=== PATIENT | female | born 1960 | race African-American/Black ===

== ENCOUNTER 2018-10-13 20:12 | Emergency (ER) | payer MEDICARE, OTHER ==
[~2018-10-13] VITALS: Ht 152.4 cm; Wt 76.7 kg
[~2018-10-13 20:12] MED LIST: ARIP30TA4; LAMO300T; LIDO700A4 TD; OXYC15TA61; OXYC1TAB22 PO; OXYC20TA PO; OXYC5TAB88 PO
[2018-10-13] MEDS ORDERED: predniSONE 20 MG TABLET PO ONE (20:30)
[2018-10-13] MEDS ORDERED: FAMOTIDINE 20 MG TABLET. PO ONE (20:30)
[2018-10-13] MEDS ORDERED: diphenhydrAMINE HCL 25 MG CAPSULE PO ONE (20:30)
[2018-10-13 21:22] VITALS: BP 130/81
[2018-10-13] MEDS ORDERED: RANI300T3 PO (21:34)
[2018-10-13] MEDS ORDERED: VALA10005 PO (21:34)
[2018-10-13] MEDS ORDERED: PRED20TA PO (21:34)
--- NOTE | 2018-10-13 21:34 | PHYS DOC ---
Past Medical History Past Medical History: Asthma, Pneumonia Additional Past Medical Histor: Graves dx, chronic pain knees and hips Past Surgical History: Hysterectomy, Knee Replacement Additional Past Surgical Histo: CARPAL TUNNEL Alcohol Use: None Drug Use: None Adult General Chief Complaint Chief Complaint: FACE PROBLEM HPI HPI 58-year-old female presents with some right-sided facial swelling. She's noted her upper lip and right side of her face is been burning. She denies any swelling or burning in her ear. She states this is happened in the past. She denies any tongue swelling or difficulty swallowing. She hasn't had any difficulty opening or closing her mouth. She's had no trouble with her speech. She does state that the area moses.[] Review of Systems Review of Systems Constitutional: Denies fever or chills [] Eyes: Denies change in visual acuity, redness, or eye pain [] HENT: Upper lip swelling[] Respiratory: Denies cough or shortness of breath [] Cardiovascular: No additional information not addressed in HPI [] GI: Denies abdominal pain, nausea, vomiting, bloody stools or diarrhea [] : Denies dysuria or hematuria [] Musculoskeletal: Denies back pain or joint pain [] Integument: Denies rash or skin lesions [] Neurologic: Denies headache, focal weakness or sensory changes [] Endocrine: Denies polyuria or polydipsia [] All other systems were reviewed and found to be within normal limits, except as documented in this note. Current Medications Current Medications Current Medications Medications (Trade) Dose Ordered Sig/Alley Start Time Stop Time Status Last Admin Dose Admin Diphenhydramine HCl (Benadryl) 25 mg 1X ONCE 10/13/18 20:30 10/13/18 20:33 DC 10/13/18 20:48 25 MG Famotidine (Pepcid) 40 mg 1X ONCE 10/13/18 20:30 10/13/18 20:33 DC 10/13/18 20:47 40 MG Prednisone (Prednisone) 60 mg 1X ONCE 10/13/18 20:30 10/13/18 20:33 DC 10/13/18 20:48 60 MG Allergies Allergies Allergies Coded Allergies Type Severity Reaction Last Updated Verified Sulfa (Sulfonamide Antibiotics) Allergy Intermediate 05/13/15 Yes iodine Allergy Intermediate 05/13/15 Yes sulfamethoxazole Allergy Intermediate 05/13/15 Yes trimethoprim Allergy Intermediate 05/13/15 Yes Physical Exam Physical Exam Constitutional: Well developed, well nourished, no acute distress, non-toxic appearance. [] HENT: Some upper lip swelling predominantly on the right no lower lip swelling no tongue swelling no posterior pharyngeal swelling there is no rash in the ear. [] Eyes: PERRLA, EOMI, conjunctiva normal, no discharge. [] Neck: Normal range of motion, no tenderness, supple, no stridor. [] Cardiovascular:Heart rate regular rhythm, no murmur [] Lungs & Thorax: Bilateral breath sounds clear to auscultation [] Abdomen: Bowel sounds normal, soft, no tenderness, no masses, no pulsatile masses. [] Skin: Warm, dry, no erythema, no rash. [] Back: No tenderness, no CVA tenderness. [] Extremities: No tenderness, no cyanosis, no clubbing, ROM intact, no edema. [] Neurologic: Alert and oriented X 3, normal motor function, normal sensory function, no focal deficits noted. [] Psychologic: Affect normal, judgement normal, mood normal. [] Current Patient Data Vital Signs Vital Signs Date Time Temp Pulse Resp B/P (MAP) Pulse Ox O2 Delivery O2 Flow Rate FiO2 10/13/18 20:15 98.0 88 18 118/72 (87) 96 Room Air 98.0 EKG EKG [] Radiology/Procedures Radiology/Procedures [] Course & Med Decision Making Course & Med Decision Making Pertinent Labs and Imaging studies reviewed. (See chart for details) [ED course: Evaluation reveals a 58-year-old female with some right sided facial burning and swelling. I gave her Benadryl, prednisone and Pepcid and that did alleviate some of her symptoms. There was no tongue or posterior pharyngeal swelling. I'm concerned that she may have a component of zoster so I will therefore treat her with some Valtrex as well.] Dragon Disclaimer Dragon Disclaimer This electronic medical record was generated, in whole or in part, using a voice recognition dictation system. Departure Departure Impression: Primary Impression: Right facial swelling Disposition: HOME, SELF-CARE Condition: IMPROVED Referrals: CECE CHAPMAN MD (PCP) Patient Instructions: Angioedema Additional Instructions: Return to the emergency department with any new or concerning symptoms Scripts Ranitidine Hcl (ZANTAC) 300 Mg Tablet 1 TAB PO QHS for reflux, #30 TAB 3 Refills Prov: PAULA MERAZ DO 10/13/18 Valacyclovir Hcl (VALTREX) 1,000 Mg Tablet 1 TAB PO DAILY, #30 TAB 0 Refills Prov: PAULA MERAZ DO 10/13/18 Prednisone (PREDNISONE) 20 Mg Tablet 3 TAB PO DAILY PRN for COUGH for 5 Days, #15 TAB Prov: PAULA MERAZ DO 10/13/18 PAULA MERAZ DO Oct 13, 2018 21:34
[2018-10-14] MEDS ORDERED: CLIN300C8 PO (23:07)
== END 2018-10-13 21:40 | disposition home or self-care (01) ==
LOC: ER 20:12
DX: R22.0 Localized swelling, mass and lump, head (principal); J45.909 Unspecified asthma, uncomplicated; G89.29 Other chronic pain; Z90.710 Acquired absence of both cervix and uterus; Z96.659 Presence of unspecified artificial knee joint; Z88.2 Allergy status to sulfonamides; Z88.1 Allergy status to other antibiotic agents; Z91.041 Radiographic dye allergy status
CPT/HCPCS: 99284; J7512; Q0163

== ENCOUNTER 2018-10-14 20:29 | Emergency (ER) | payer MEDICARE, OTHER ==
[~2018-10-14] VITALS: Ht 152.4 cm; Wt 76.7 kg
[~2018-10-14 20:29] MED LIST changes: +PRED20TA PO; +RANI300T3 PO; +VALA10005 PO
[2018-10-14 20:58] VITALS: BP 115/86
--- NOTE | 2018-10-14 22:13 | PHYS DOC ---
Past Medical History Past Medical History: Asthma, Pneumonia Additional Past Medical Histor: Graves dx, chronic pain knees and hips Past Surgical History: Hysterectomy, Knee Replacement Additional Past Surgical Histo: CARPAL TUNNEL Alcohol Use: None Drug Use: None Adult General Chief Complaint Chief Complaint: FACE PROBLEM [facility] HPI Patient is a 58 year old female presents to the ED complaining of right facial swelling 2 days ago. States similar symptoms have happened in the past. States that she thinks it is an allergic reaction but is unsure of the cause. Patient does not take any NATHAN inhibitor's. Patient was seen in the ED yesterday and given Valtrex, prednisone and Benadryl. Patient noted that swelling to right face has improved. Patient refuses to take valtrex as she does not have herpes. Discussed multiple different treatments for valtrex. Patient also unhappy that she did not have any imaging of her face done. Patient thinks that the swelling is due to a possible infection. Denies dental pain, fever, difficulty swallowing , tongue swelling, lip swelling, chest pain, shortness of breath, nausea/ vomiting, paresthesias, facial droop, headache or dizziness. Review of Systems Review of Systems Constitutional: Denies fever or chills [] Eyes: Denies change in visual acuity, redness, or eye pain [] HENT: Complains of right-sided facial swelling. Denies nasal congestion or sore throat [] Respiratory: Denies cough or shortness of breath [] Cardiovascular: No additional information not addressed in HPI [] GI: Denies abdominal pain, nausea, vomiting, bloody stools or diarrhea [] : Denies dysuria or hematuria [] Musculoskeletal: Denies back pain or joint pain [] Integument: Denies rash or skin lesions [] Neurologic: Denies headache, focal weakness or sensory changes [] All other systems were reviewed and found to be within normal limits, except as documented in this note. Allergies Allergies Allergies Coded Allergies Type Severity Reaction Last Updated Verified Sulfa (Sulfonamide Antibiotics) Allergy Intermediate 05/13/15 Yes iodine Allergy Intermediate 05/13/15 Yes sulfamethoxazole Allergy Intermediate 05/13/15 Yes trimethoprim Allergy Intermediate 05/13/15 Yes Physical Exam Physical Exam Constitutional: Well developed, well nourished, no acute distress, non-toxic appearance. [] HENT: Normocephalic, atraumatic, bilateral external ears normal, oropharynx moist, no oral exudates, nose normal. Mild right sided lower jaw swelling. No erythema, trismus warmth or fluctuance. FROM.[] Eyes: PERRLA, EOMI, conjunctiva normal, no discharge. [] Neck: Normal range of motion, no tenderness, supple, no stridor. [] Cardiovascular:Heart rate regular rhythm, no murmur [] Lungs & Thorax: Bilateral breath sounds clear to auscultation [] Skin: Warm, dry, no erythema, no rash. [] Neurologic: Alert and oriented X 3, normal motor function, normal sensory function, no focal deficits noted. [] Psychologic: Affect normal, judgement normal, mood normal. [] Current Patient Data Vital Signs Vital Signs Date Time Temp Pulse Resp B/P (MAP) Pulse Ox O2 Delivery O2 Flow Rate FiO2 10/14/18 20:58 98.3 99 18 115/86 (96) 97 Room Air 98.3 EKG EKG [] Radiology/Procedures Radiology/Procedures []PROCEDURE: CT MAXILLOFACIAL WO CONTRAST INDICATION: right swelling to jaw COMPARISON: None. TECHNIQUE: Axial CT images obtained through the face. One or more of the following individualized dose reduction techniques were utilized for this examination: 1. Automated exposure control; 2. Adjustment of the mA and/or kV according to patient size; 3. Use of iterative reconstruction technique. FINDINGS: Apparent thinning of the inferior orbital wall bilaterally with bowing of the wall. There is also some apparent thinning of the skull base on the right at temporal region. Defect lateral orbital wall bilaterally. Hardware seen on the left within the osseous structures adjacent to the globe. There is edema seen to the right side of the face adjacent to the maxilla and mandible with enlarged lymph nodes within the region as well. Cannot assess for a drainable fluid collection on noncontrast imaging. IMPRESSION: 1. Large amount of swelling to soft tissues at the right side of the face. Correlate with symptoms in the region since infectious causes can have this appearance. There is a confluent region of low-attenuation measuring approximately a centimeter adjacent to the right side of the mandible. Although this could be artifactual in nature phlegmon or abscess formation are within the differential and limited evaluation without contrast. 2. There is thinning of the calvarium at the right skull base at the right temporal region. Would correlate with history of surgery to the region. If no history of surgery to this area some possible causes would include arachnoid granulation although a lytic lesions in the area is also within the differential. If further clarification is desired MRI could BE obtained with and without contrast. 3. There is also thinning of the inferior orbital wall with bowing within the region. Defects are seen at the lateral orbital wall as well. Course & Med Decision Making Course & Med Decision Making Pertinent Labs and Imaging studies reviewed. (See chart for details) []Discussed imaging findings with patient. Patient has a history of surgeries to her skull due to her Graves' disease. Unknown if findings on imaging are from the possible arachnoid granulations/lytic lesions seen on CT or her previous surgeries. Patient has soft tissue swelling. No discrete signs of infection on exam or on CT. Patient has had similar symptoms in the past of facial swelling that has improved with prednisone. Patient notes swelling has improved since yesterday with the prednisone and Benadryl. Patient requesting antibiotic treatment. Will treat with clindamycin outpatient. Discussed follow- up with PCP for MRI outpatient. Provided contact information/education. Discussed reasons to return to the ED. Patient understands and agrees with plan. Discussed case with attending physician whom agrees with evaluation and plan. Dragon Disclaimer Dragon Disclaimer This electronic medical record was generated, in whole or in part, using a voice recognition dictation system. Departure Departure Impression: Primary Impression: Facial swelling Disposition: 01 HOME, SELF-CARE Condition: IMPROVED Referrals: CECE CHAPMAN MD (PCP) Patient Instructions: Angioedema Scripts Clindamycin Hcl (CLINDAMYCIN HCL) 300 Mg Capsule 1 CAP PO TID for 7 Days, #21 CAP Prov: MARGARITA SILVESTRE 10/14/18 MARGARITA SILVESTRE Oct 14, 2018 22:13
--- NOTE | 2018-10-14 22:55 | RAD ---
INDICATION: right swelling to jaw COMPARISON: None. TECHNIQUE: Axial CT images obtained through the face. One or more of the following individualized dose reduction techniques were utilized for this examination: 1. Automated exposure control; 2. Adjustment of the mA and/or kV according to patient size; 3. Use of iterative reconstruction technique. FINDINGS: Apparent thinning of the inferior orbital wall bilaterally with bowing of the wall. There is also some apparent thinning of the skull base on the right at temporal region. Defect lateral orbital wall bilaterally. Hardware seen on the left within the osseous structures adjacent to the globe. There is edema seen to the right side of the face adjacent to the maxilla and mandible with enlarged lymph nodes within the region as well. Cannot assess for a drainable fluid collection on noncontrast imaging. IMPRESSION: 1. Large amount of swelling to soft tissues at the right side of the face. Correlate with symptoms in the region since infectious causes can have this appearance. There is a confluent region of low-attenuation measuring approximately a centimeter adjacent to the right side of the mandible. Although this could be artifactual in nature phlegmon or abscess formation are within the differential and limited evaluation without contrast. 2. There is thinning of the calvarium at the right skull base at the right temporal region. Would correlate with history of surgery to the region. If no history of surgery to this area some possible causes would include arachnoid granulation although a lytic lesions in the area is also within the differential. If further clarification is desired MRI could BE obtained with and without contrast. 3. There is also thinning of the inferior orbital wall with bowing within the region. Defects are seen at the lateral orbital wall as well. Electronically signed by: Milton Umana MD (10/14/2018 10:52 PM) [facility]
[2018-10-14] MEDS ORDERED: CLIN300C8 PO (23:07)
== END 2018-10-14 23:21 | disposition home or self-care (01) ==
LOC: ER 20:29
DX: R22.0 Localized swelling, mass and lump, head (principal); G89.29 Other chronic pain; J45.909 Unspecified asthma, uncomplicated; Z88.1 Allergy status to other antibiotic agents; Z88.2 Allergy status to sulfonamides; Z88.8 Allergy status to other drugs, medicaments and biological substances
CPT/HCPCS: 70486; 99284-25

== ENCOUNTER 2018-11-08 14:02 | Emergency (ER) | payer MEDICARE, OTHER ==
[~2018-11-08] VITALS: Ht 152.4 cm; Wt 79.4 kg
[~2018-11-08 14:02] MED LIST changes: +CLIN300C8 PO
[2018-11-08] MEDS ORDERED: MORPHINE SULFATE 10 MG/ML VIAL. IV ONE (14:30)
[2018-11-08 14:50] LABS: BASO % 1 % (0-3); EOS # 0.2 x10^3/uL (0.0-0.7); EOS % 5 % (0-3); HEMATOCRIT 34.9 % (36.0-47.0); HEMOGLOBIN 11.6 g/dL (12.0-15.5); LYMPH # 0.7 x10^3/uL (1.0-4.8); LYMPH % 14 % (24-48); MEAN CORPUSCULAR HEMOGLOBIN 29 pg (25-35); MEAN CORPUSCULAR HGB CONC 33 g/dL (31-37); MEAN CORPUSCULAR VOLUME 88 fL (79-100); MONO # 0.6 x10^3/uL (0.0-1.1); MONO % 12 % (0-9); NEUT # 3.2 x10^3uL (1.8-7.7); NEUT % 68 % (31-73); PLATELET COUNT 237 x10^3/uL (140-400); RED BLOOD COUNT 3.96 x10^6/uL (3.50-5.40); RED CELL DISTRIBUTION WIDTH 14.6 % (11.5-14.5); WHITE BLOOD COUNT 4.6 x10^3/uL (4.0-11.0)
[2018-11-08 14:55] LABS: CREATININE 0.8 mg/dL (0.6-1.0); GFR 89.1; POTASSIUM 3.5 mmol/L (3.5-5.1)
[2018-11-08 15:01] LABS: ALBUMIN 3.1 g/dL (3.4-5.0); ALBUMIN/GLOBULIN RATIO 0.9 (1.0-1.7); TOTAL BILIRUBIN 0.2 mg/dL (0.2-1.0); TOTAL PROTEIN 6.5 g/dL (6.4-8.2)
--- NOTE | 2018-11-08 15:13 | RAD ---
Pelvis with both hips, 5 views, 11/08/2018: HISTORY: Severe right hip pain There is severe narrowing of the right hip joint with sclerosis and marginal spurring. There is mixed lytic and sclerotic change in the superior aspect of the femoral head with articular irregularity. 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 There is mild to moderate degenerative change at the left hip joint. Moderate spurring is evident in the lower lumbar spine. IMPRESSION: Severe degenerative change at the right hip joint as described above. Electronically signed by: Jose Luis Capps MD (11/08/2018 3:09 PM) [facility]
--- NOTE | 2018-11-08 15:23 | PHYS DOC ---
Past Medical History Past Medical History: Asthma, Pneumonia Additional Past Medical Histor: Graves dx, chronic pain knees and hips Past Surgical History: Hysterectomy, Knee Replacement Additional Past Surgical Histo: CARPAL TUNNEL Alcohol Use: None Drug Use: None Adult General Chief Complaint Chief Complaint: HIP PAIN HPI HPI Patient is a 58 year old female who presents with severe pain in her right hip. She states that the pain is 10/10. She states that she was supposed to have a hip replacement with Dr. Mg about 2.5 years ago, but was afraid and did not follow up. She has good days and bad days with her pain, but states this is the worst that it's been. She denies any new injury. Nothing is relieving the pain. Review of Systems Review of Systems Constitutional: Denies fever or chills [ Respiratory: Denies cough or shortness of breath [] Cardiovascular: No additional information not addressed in HPI [] GI: Denies abdominal pain, nausea, vomiting, bloody stools or diarrhea [] : Denies dysuria or hematuria [] Musculoskeletal: See history of present illness Integument: Denies rash or skin lesions [] Neurologic: Denies headache, focal weakness or sensory changes [] Endocrine: Denies polyuria or polydipsia [] All other systems were reviewed and found to be within normal limits, except as documented in this note. Current Medications Current Medications Current Medications Medications (Trade) Dose Ordered Sig/[facility] Start Time Stop Time Status Last Admin Dose Admin Morphine Sulfate (Morphine Sulfate) 5 mg 1X ONCE 11/08/18 14:30 11/08/18 14:31 DC 11/08/18 14:35 5 MG Allergies Allergies Allergies Coded Allergies Type Severity Reaction Last Updated Verified Sulfa (Sulfonamide Antibiotics) Allergy Intermediate 05/13/15 Yes iodine Allergy Intermediate 05/13/15 Yes sulfamethoxazole Allergy Intermediate 05/13/15 Yes trimethoprim Allergy Intermediate 05/13/15 Yes Physical Exam Physical Exam Constitutional: Well developed, well nourished, no acute distress, non-toxic appearance. [] Cardiovascular:Heart rate regular rhythm, no murmur [] Lungs & Thorax: Bilateral breath sounds clear to auscultation [] Abdomen: Bowel sounds normal, soft, no tenderness, no masses, no pulsatile masses. [] Skin: Warm, dry, no erythema, no rash. [] Back: No tenderness, no CVA tenderness. [] Extremities: tenderness to right hip, no gross deformity or shortening noted, pulses and sensation are intact distal to pain no cyanosis, no clubbing, ROM decreased due to pain Neurologic: Alert and oriented X 3, normal motor function, normal sensory function, no focal deficits noted. [] Psychologic: Affect normal, judgement normal, mood normal. [] Current Patient Data Vital Signs Vital Signs Date Time Temp Pulse Resp B/P (MAP) Pulse Ox O2 Delivery O2 Flow Rate FiO2 11/08/18 14:38 88 24 98/60 (73) 98 Room Air 11/08/18 14:13 97.8 97.8 Lab Values Laboratory Tests Test 11/08/18 14:30 White Blood Count 4.6 x10^3/uL (4.0-11.0) Red Blood Count 3.96 x10^6/uL (3.50-5.40) Hemoglobin 11.6 g/dL (12.0-15.5) L Hematocrit 34.9 % (36.0-47.0) L Mean Corpuscular Volume 88 fL (79-100) Mean Corpuscular Hemoglobin 29 pg (25-35) Mean Corpuscular Hemoglobin Concent 33 g/dL (31-37) Red Cell Distribution Width 14.6 % (11.5-14.5) H Platelet Count 237 x10^3/uL (140-400) Neutrophils (%) (Auto) 68 % (31-73) Lymphocytes (%) (Auto) 14 % (24-48) L Monocytes (%) (Auto) 12 % (0-9) H Eosinophils (%) (Auto) 5 % (0-3) H Basophils (%) (Auto) 1 % (0-3) Neutrophils # (Auto) 3.2 x10^3uL (1.8-7.7) Lymphocytes # (Auto) 0.7 x10^3/uL (1.0-4.8) L Monocytes # (Auto) 0.6 x10^3/uL (0.0-1.1) Eosinophils # (Auto) 0.2 x10^3/uL (0.0-0.7) Basophils # (Auto) 0.0 x10^3/uL (0.0-0.2) Sodium Level 141 mmol/L (136-145) Potassium Level 3.5 mmol/L (3.5-5.1) Chloride Level 106 mmol/L (98-107) Carbon Dioxide Level 29 mmol/L (21-32) Anion Gap 6 (6-14) Blood Urea Nitrogen 13 mg/dL (7-20) Creatinine 0.8 mg/dL (0.6-1.0) Estimated GFR (Cockcroft-Gault) 89.1 BUN/Creatinine Ratio 16 (6-20) Glucose Level 96 mg/dL (70-99) Calcium Level 9.0 mg/dL (8.5-10.1) Total Bilirubin 0.2 mg/dL (0.2-1.0) Aspartate Amino Transferase (AST) 16 U/L (15-37) Alanine Aminotransferase (ALT) 20 U/L (14-59) Alkaline Phosphatase 173 U/L (46-116) H Total Protein 6.5 g/dL (6.4-8.2) Albumin 3.1 g/dL (3.4-5.0) L Albumin/Globulin Ratio 0.9 (1.0-1.7) L Laboratory Tests 11/08/18 14:30 Laboratory Tests 11/08/18 14:30 EKG EKG [] Radiology/Procedures Radiology/Procedures []PATIENT: ASIF HAWKINSACCOUNT: [id number]#: [id number] : 1960 LOCATION: ER AGE: 58 SEX: F EXAM STATUS: REG ER ORD. PHYSICIAN: LUKAS LUNSFORD APRN REASON: "needs hip replacement" severe pain PROCEDURE: HIP BILATERAL WITH PELVIS Pelvis with both hips, 5 views, 11/08/2018: HISTORY: Severe right hip pain There is severe narrowing of the right hip joint with sclerosis and marginal spurring. There is mixed lytic and sclerotic change in the superior aspect of the femoral head with articular irregularity. 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 There is mild to moderate degenerative change at the left hip joint. Moderate spurring is evident in the lower lumbar spine. IMPRESSION: Severe degenerative change at the right hip joint as described above. Electronically signed by: Jos eLuis Capps MD (11/08/2018 3:09 PM) [facility] DICTATED and SIGNED BY: JOSE LUIS CAPPS MD DATE: 11/08/18 1509 Course & Med Decision Making Course & Med Decision Making Pertinent Labs and Imaging studies reviewed. (See chart for details) []The patient was given pain medication in the emergency department. Dr. Mg was consulted and the patient is being discharged home. She is to follow-up with his office to schedule surgery. Dragon Disclaimer Dragon Disclaimer This electronic medical record was generated, in whole or in part, using a voice recognition dictation system. Departure Departure Impression: Primary Impression: Necrosis of head of right femur Additional Impression: Hip arthritis Disposition: HOME, SELF-CARE Condition: STABLE Referrals: CECE CHAPMAN MD (PCP) RICHARD MG II, MD Patient Instructions: Arthritis, Degenerative-Brief Additional Instructions: Follow-up with Dr. Mg to schedule surgery of your hip. Follow-up with your primary care provider for additional pain medications if needed. Scripts Hydrocodone/Apap 5-325 (NORCO 5-325 TABLET) 1 Each Tablet 1 TAB PO PRN Q6HRS PRN for PAIN, #14 TAB 0 Refills Prov: LUKAS LUNSFORD APRN 11/08/18 Problem Qualifiers LUKAS LUNSFORD APRN November 08, 2018 15:23
[2018-11-08] MEDS ORDERED: HYDR-3164 PO (15:40)
[2018-11-08 15:49] VITALS: BP 124/62
== END 2018-11-08 15:55 | disposition home or self-care (01) ==
LOC: ER 14:02
DX: M16.11 Unilateral primary osteoarthritis, right hip (principal); M87.851 Other osteonecrosis, right femur; G89.29 Other chronic pain; J45.909 Unspecified asthma, uncomplicated; Z88.2 Allergy status to sulfonamides; Z88.1 Allergy status to other antibiotic agents; Z88.8 Allergy status to other drugs, medicaments and biological substances
CPT/HCPCS: 36415; 73521; 80053; 85025; 96374; 99285; J2270

== ENCOUNTER 2019-03-28 21:06 | Inpatient (IN) | payer MEDICARE, OTHER ==
[~2019-03-28] VITALS: Ht 152.4 cm; Wt 80.9 kg
[~2019-03-28 21:06] MED LIST changes: +HYDR-3164 PO
[2019-03-28] MEDS ORDERED: methylPREDNISolone SOD SUCC PF 125 MG/2 ML VIAL. IV ONE (21:30)
[2019-03-28] MEDS ORDERED: IPRATRPIUM/ALBUTEROL 0.5/2.5MG 3 ML NEBU. NEB ONE (21:30)
--- NOTE | 2019-03-28 21:37 | PHYS DOC ---
Past Medical History Past Medical History: Asthma, Bipolar, Pneumonia Additional Past Medical Histor: Graves dx, chronic pain knees and hips, Past Surgical History: Hysterectomy, Knee Replacement Additional Past Surgical Histo: CARPAL TUNNEL, bilateral eye surgery Alcohol Use: None Drug Use: None Adult General Chief Complaint Chief Complaint: SHORTNESS OF BREATH HPI HPI 59-year-old female presents to the emergency department via EMS with complaints of shortness of breath, chest pressure. Initial evaluation respiratory rate in the 40s upon EMS arrival however saturations 100%. She states his dyspnea is worse today. She states she did have palmar function testing done today and states things got worse afterwards. She denies any nausea, vomiting, diaphoresis, fever, chills. Patient denies any history of coronary disease however is a family history. She takes medication for hyperthyroid disease. Nothing makes her pain worse or better, which or shortness of breath worse or better. Review of Systems Review of Systems Constitutional: Denies fever or chills [] HENT: Denies nasal congestion or sore throat [] Respiratory: Shortness of breath Cardiovascular: chest pain, pressure sensation GI: Denies abdominal pain, nausea, vomiting, bloody stools or diarrhea [] Musculoskeletal: Denies back pain or joint pain [] Neurologic: Denies headache, focal weakness or sensory changes [] All other systems were reviewed and found to be within normal limits, except as documented in this note. Current Medications Current Medications Current Medications Medications (Trade) Dose Ordered Sig/Alley Start Time Stop Time Status Last Admin Dose Admin Albuterol/ Ipratropium (Duoneb) 3 ml 1X ONCE 03/28/19 21:30 03/28/19 21:32 DC 03/28/19 21:36 3 ML Methylprednisolone Sodium Succinate (SOLU-Medrol 125MG VIAL) 125 mg 1X ONCE 03/28/19 21:30 03/28/19 21:32 DC 03/28/19 21:36 125 MG Allergies Allergies Allergies Coded Allergies Type Severity Reaction Last Updated Verified Sulfa (Sulfonamide Antibiotics) Allergy Intermediate 05/13/15 Yes iodine Allergy Intermediate 05/13/15 Yes sulfamethoxazole Allergy Intermediate 05/13/15 Yes trimethoprim Allergy Intermediate 05/13/15 Yes Physical Exam Physical Exam Constitutional: Well developed, well nourished, no acute distress, non-toxic ap pearance. [] HENT: Normocephalic, atraumatic, bilateral external ears normal, oropharynx moist, no oral exudates, nose normal. [] Eyes: PERRLA, EOMI, conjunctiva normal, no discharge. [] Cardiovascular:Heart rate regular rhythm, no murmur [] Lungs & Thorax: Bilateral breath sounds clear to auscultation [] Abdomen: Bowel sounds normal, soft, no tenderness, no masses, no pulsatile masses. [] Skin: Warm, dry, no erythema, no rash. [] Extremities: No tenderness, no cyanosis, no edema. [] Neurologic: Alert and oriented X 3, no focal deficits noted. [] Psychologic: Affect normal, judgement normal, mood normal. [] Current Patient Data Vital Signs Vital Signs Date Time Temp Pulse Resp B/P (MAP) Pulse Ox O2 Delivery O2 Flow Rate FiO2 03/28/19 21:38 96 Room Air Lab Values Laboratory Tests Test 03/28/19 21:35 White Blood Count 4.4 x10^3/uL (4.0-11.0) Red Blood Count 4.60 x10^6/uL (3.50-5.40) Hemoglobin 13.3 g/dL (12.0-15.5) Hematocrit 40.1 % (36.0-47.0) Mean Corpuscular Volume 87 fL (79-100) Mean Corpuscular Hemoglobin 29 pg (25-35) Mean Corpuscular Hemoglobin Concent 33 g/dL (31-37) Red Cell Distribution Width 14.0 % (11.5-14.5) Platelet Count 273 x10^3/uL (140-400) Neutrophils (%) (Auto) 64 % (31-73) Lymphocytes (%) (Auto) 23 % (24-48) L Monocytes (%) (Auto) 10 % (0-9) H Eosinophils (%) (Auto) 3 % (0-3) Basophils (%) (Auto) 1 % (0-3) Neutrophils # (Auto) 2.8 x10^3/uL (1.8-7.7) Lymphocytes # (Auto) 1.0 x10^3/uL (1.0-4.8) Monocytes # (Auto) 0.4 x10^3/uL (0.0-1.1) Eosinophils # (Auto) 0.1 x10^3/uL (0.0-0.7) Basophils # (Auto) 0.1 x10^3/uL (0.0-0.2) D-Dimer (Myrna) 0.68 ug/mlFEU (0.00-0.50) H Sodium Level 143 mmol/L (136-145) Potassium Level 3.3 mmol/L (3.5-5.1) L Chloride Level 107 mmol/L (98-107) Carbon Dioxide Level 26 mmol/L (21-32) Anion Gap 10 (6-14) Blood Urea Nitrogen 12 mg/dL (7-20) Creatinine 0.8 mg/dL (0.6-1.0) Estimated GFR (Cockcroft-Gault) 88.8 BUN/Creatinine Ratio 15 (6-20) Glucose Level 90 mg/dL (70-99) Calcium Level 9.5 mg/dL (8.5-10.1) Total Bilirubin 0.2 mg/dL (0.2-1.0) Aspartate Amino Transferase (AST) 23 U/L (15-37) Alanine Aminotransferase (ALT) 35 U/L (14-59) Alkaline Phosphatase 164 U/L (46-116) H Troponin I Quantitative < 0.017 ng/mL (0.000-0.055) XQ-Umx-V-Type Natriuretic Peptide 101 pg/mL (0-124) Total Protein 7.1 g/dL (6.4-8.2) Albumin 3.6 g/dL (3.4-5.0) Albumin/Globulin Ratio 1.0 (1.0-1.7) Laboratory Tests 03/28/19 21:35 Laboratory Tests 03/28/19 21:35 EKG EKG EKG reviewed, regular rate and rhythm, heart rate 87, no evidence of ST elevation PR appreciated nonurgent EKG[] Interpretation Time: Interpretation time 2124 Radiology/Procedures Radiology/Procedures [facility] [address] [place] [address] IMAGING REPORT Signed PATIENT: ASIF HAWKINS ACCOUNT: [id number] : 1960 LOCATION: ER AGE: 59 SEX: F EXAM STATUS: REG ER ORD. PHYSICIAN: ARIAS GARZA MD REASON: dyspnea, chest pressure x1 day PROCEDURE: PORTABLE CHEST 1V Single view chest dated 03/28/2019. Comparison made to 05/13/2015. Clinical data indication: Dyspnea and chest pressure for one day. FINDINGS: Single upright portable exam performed. Heart and mediastinal contours are stable. Lungs are clear. No consolidation or pleural effusion. No pneumothorax. IMPRESSION: No acute radiographic abnormality. Electronically signed by: Pino Garcias MD (03/28/2019 10:17 PM) [facility] DICTATED and SIGNED BY: PINO GARCIAS MD DATE: 03/28/197 [] Course & Med Decision Making Course & Med Decision Making Pertinent Labs and Imaging studies reviewed. (See chart for details) []59-year-old female presents to the emergency department via EMS with complai nts of shortness of breath, chest pressure. Initial evaluation respiratory rate in the 40s upon EMS arrival however saturations 100%. She states his dyspnea is worse today. She states she did have palmar function testing done today and states things got worse afterwards. She denies any nausea, vomiting, diaphoresis, fever, chills. Patient denies any history of coronary disease however is a family history. She takes medication for hyperthyroid disease. Nothing makes her pain worse or better, which or shortness of breath worse or better. Left wrist is reviewed, white blood cell count 4.4, hemoglobin 13.3, d-dimer mildly elevated at 0.68, above age-adjusted level. Patient does have allergy to iodine. Chest x-ray reveals no his of acute consolidation. She does have hypokalemia at 3.3, this was replaced in the emergency department. We'll trend cardiac enzymes, plan for VQ scan the a.m. and admission to the hospital. Dragon Disclaimer Dragon Disclaimer This electronic medical record was generated, in whole or in part, using a voice recognition dictation system. Departure Departure Impression: Primary Impression: Chest pain Additional Impressions: Shortness of breath Elevated d-dimer Hypokalemia Disposition: ADMITTED INPATIENT Admitting Physician: JOHN Condition: STABLE Referrals: CECE CHAPMAN MD (PCP) Problem Qualifiers Primary Impression: Chest pain Chest pain type: other chest pain Qualified Codes: R07.89 - Other chest pain ARIAS GARZA MD Mar 28, 2019 21:37
[2019-03-28 21:49] LABS: BASO # 0.1 x10^3/uL (0.0-0.2); BASO % 1 % (0-3); EOS # 0.1 x10^3/uL (0.0-0.7); EOS % 3 % (0-3); HEMATOCRIT 40.1 % (36.0-47.0); HEMOGLOBIN 13.3 g/dL (12.0-15.5); LYMPH % 23 % (24-48); MEAN CORPUSCULAR HEMOGLOBIN 29 pg (25-35); MEAN CORPUSCULAR HGB CONC 33 g/dL (31-37); MEAN CORPUSCULAR VOLUME 87 fL (79-100); MONO # 0.4 x10^3/uL (0.0-1.1); MONO % 10 % (0-9); NEUT # 2.8 x10^3/uL (1.8-7.7); NEUT % 64 % (31-73); PLATELET COUNT 273 x10^3/uL (140-400); WHITE BLOOD COUNT 4.4 x10^3/uL (4.0-11.0)
[2019-03-28 21:55] LABS: CALCIUM 9.5 mg/dL (8.5-10.1); CREATININE 0.8 mg/dL (0.6-1.0); GFR 88.8
[2019-03-28 22:01] LABS: ALBUMIN 3.6 g/dL (3.4-5.0); TOTAL BILIRUBIN 0.2 mg/dL (0.2-1.0); TOTAL PROTEIN 7.1 g/dL (6.4-8.2)
[2019-03-28 22:16] LABS: POTASSIUM 3.3 mmol/L (3.5-5.1)
--- NOTE | 2019-03-28 22:20 | RAD ---
Single view chest dated 03/28/2019. Comparison made to 05/13/2015. Clinical data indication: Dyspnea and chest pressure for one day. FINDINGS: Single upright portable exam performed. Heart and mediastinal contours are stable. Lungs are clear. No consolidation or pleural effusion. No pneumothorax. IMPRESSION: No acute radiographic abnormality. Electronically signed by: Pino Garcias MD (03/28/2019 10:17 PM) [facility]
[2019-03-28] MEDS ORDERED: NITROGLYCERIN SUBLINGUAL 0.4 MG BOTTLE OF 25. SL PRN (22:45)
[2019-03-28] MEDS ORDERED: ACETAMINOPHEN 325 MG TABLET. PO PRN (22:45)
[2019-03-28] MEDS ORDERED: ONDANSETRON PF 4 MG/2 ML VIAL. IV PRN (22:45)
[2019-03-28] MEDS ORDERED: ASPIRIN 325 MG TABLET PO ONE (23:00)
[2019-03-29] VITALS (7 sets, daily range): BP systolic 95–148; BP diastolic 61–95
[2019-03-29] MEDS ORDERED: ALBUTEROL SULFATE 2.5 MG/3 ML NEBU. NEB PRN (01:15)
[2019-03-29] MEDS: oxyCODONE/APAP 10/325 1 TAB TABLET PO PRN ×3 (01:38→19:56)
[2019-03-29 05:02] LABS: BASO % 1 % (0-3); EOS % 0 % (0-3); HEMATOCRIT 40.7 % (36.0-47.0); HEMOGLOBIN 13.4 g/dL (12.0-15.5); LYMPH # 0.4 x10^3/uL (1.0-4.8); LYMPH % 8 % (24-48); MEAN CORPUSCULAR HEMOGLOBIN 29 pg (25-35); MEAN CORPUSCULAR HGB CONC 33 g/dL (31-37); MEAN CORPUSCULAR VOLUME 87 fL (79-100); MONO # 0.1 x10^3/uL (0.0-1.1); MONO % 2 % (0-9); NEUT # 4.8 x10^3/uL (1.8-7.7); NEUT % 89 % (31-73); PLATELET COUNT 270 x10^3/uL (140-400); RED BLOOD COUNT 4.67 x10^6/uL (3.50-5.40); RED CELL DISTRIBUTION WIDTH 14.1 % (11.5-14.5); WHITE BLOOD COUNT 5.4 x10^3/uL (4.0-11.0)
[2019-03-29 05:28] LABS: ALBUMIN 3.6 g/dL (3.4-5.0); ALBUMIN/GLOBULIN RATIO 0.9 (1.0-1.7); CALCIUM 9.5 mg/dL (8.5-10.1); CREATININE 0.8 mg/dL (0.6-1.0); GFR 88.8; POTASSIUM 4.3 mmol/L (3.5-5.1); TOTAL BILIRUBIN 0.3 mg/dL (0.2-1.0); TOTAL PROTEIN 7.6 g/dL (6.4-8.2)
--- NOTE | 2019-03-29 07:32 | EKG ---
[facility] [address] [place] [address] Test Date: 2019-03-28 Test Time: 21:12:44 Pat Name: ASIF HAWKINS Department: Room: Gender: F Stock Chaser: : 1960 Requested By: ARIAS GARZA Order Number: [id number] Reading MD: Measurements Intervals [place] Rate: 86 P: -10 WV: 178 QRS: -28 QRSD: 84 T: 28 QT: 414 QTc: 498 Interpretive Statements SINUS RHYTHM LEFTWARD AXIS NON SPECIFIC T ABNORMALITY PROLONGED QT BORDERLINE ECG No previous ECG available for comparison
[2019-03-29] MEDS: IPRATRPIUM/ALBUTEROL 0.5/2.5MG 3 ML NEBU. NEB SCH ×4 (07:48→20:02)
[2019-03-29 08:34] LABS: % BANDS 3 % (0-9); % LYMPHS 10 % (24-48); % MONOS 2 % (0-10); % SEGS 85 % (35-66); PLT ESTIMATE ADEQUATE (ADEQUATE)
[2019-03-29] MEDS ORDERED: predniSONE 20 MG TABLET PO ONE (10:00)
[2019-03-29] MEDS: DOXYCYCLINE HYCLATE 100 MG TABLET PO SCH ×2 (10:35→19:56)
[2019-03-29] MEDS: guaiFENesin/CODEINE 100mg/10mg 5 ML LIQUID PO PRN ×2 (10:36→19:56)
[2019-03-29] MEDS ORDERED: HYDROcodone/APAP 5/325MG 1 TAB TABLET PO PRN (12:00)
--- NOTE | 2019-03-29 12:00 | PDOC1 ---
History and Physical Date of Admission Date of Admission DATE: 03/29/19 TIME: 11:51 Identification/Chief Complaint Chief Complaint sob Problems: (1) Elevated d-dimer (2) Shortness of breath Source Source: Patient History of Present Illness History of Present Illness 59 year old rebekahe hx of SOB while at rest and on ambulation since yesterday at 12 pm. PFTS done yesterday per patient. hx of asthma and bronchitis but patient does not take any inhalers. reports non-productive cough. no hx of CHG of COPD. denies hx of PE. denies smoking. no hx of 02 use. noted elevated d dimer. hx of contrast allergy. VQ scan ordered and pending. noted hx of thyroid disease but not on meds denies fever. no hx of CAD. Past Medical History Pulmonary: Asthma, Bronchitis, Pneumonia CENTRAL NERVOUS SYSTEM: Carpal Tunnel Syndrome GI: No pertinent hx Heme/Onc: No pertinent hx Hepatobiliary: No pertinent hx Psych: Bipolar Musculoskeletal: Osteoarthritis Infectious disease: No pertinent hx Renal/: No pertinent hx Endocrine: Hyperthyroidism Past Surgical History Past Surgical History: Total knee replacement, Other Family History Family History reviewed and non-contributory Family History: No Significant Social History ALCOHOL: none Drugs: None Current Problem List Problem List Problems Medical Problems: (1) Chest pain Status: Acute (2) Elevated d-dimer Status: Acute (3) Hypokalemia Status: Acute (4) Shortness of breath Status: Acute Current Medications Current Medications Current Medications Albuterol/ Ipratropium (Duoneb) 3 ml 1X ONCE NEB Last administered on 03/28/19at 21:36; Start 03/28/19 at 21:30; Stop 03/28/19 at 21:32; Status DC Methylprednisolone Sodium Succinate (SOLU-Medrol 125MG VIAL) 125 mg 1X ONCE IV Last administered on 03/28/19at 21:36; Start 03/28/19 at 21:30; Stop 03/28/19 at 21:32; Status DC Ondansetron HCl (Zofran) 4 mg PRN Q8HRS PRN IV NAUSEA/VOMITING; Start 03/28/19 at 22:45; Stop 03/29/19 at 22:44 Acetaminophen (Tylenol) 650 mg PRN Q4HRS PRN PO FEVER; Start 03/28/19 at 22:45; Stop 03/29/19 at 22:44 Nitroglycerin (Nitrostat) 0.4 mg PRN Q5MIN PRN SL CHEST PAIN; Start 03/28/19 at 22:45; Stop 03/29/19 at 22:44 Albuterol/ Ipratropium (Duoneb) 3 ml RTQID NEB Last administered on 03/29/19at 07:48; Start 03/29/19 at 08:00; Stop 03/30/19 at 07:59 Aspirin (Cynthia Aspirin) 325 mg 1X ONCE PO Last administered on 03/29/19at 00:4 1; Start 03/28/19 at 23:00; Stop 03/28/19 at 23:01; Status DC Oxycodone/ Acetaminophen (Percocet 10/325) 1 tab PRN Q4HRS PRN PO moderate pain Last administered on 03/29/19at 05:33; Start 03/29/19 at 01:15 Albuterol Sulfate (Ventolin Neb Soln) 2.5 mg PRN Q4HRS PRN NEB SHORTNESS OF BREATH Last administered on 03/29/19at 02:46; Start 03/29/19 at 01:15 Guaifenesin/ Codeine Phosphate (Robitussin Ac) 5 ml PRN Q8HRS PRN PO COUGH Last administered on 03/29/19at 10:36; Start 03/29/19 at 09:45 Prednisone (Prednisone) 60 mg DAILY ONCE PO Last administered on 03/29/19at 10:36; Start 03/29/19 at 10:00; Stop 03/29/19 at 10:01; Status DC Doxycycline Hyclate (Vibra-Tab) 100 mg BID PO Last administered on 03/29/19at 10:36; Start 03/29/19 at 10:00 Active Scripts Active [place] 5-325 Tablet (Acetaminophen/Hydrocodone Bitart) 1 Each Tablet 1 Tab PO PRN Q6HRS PRN Clindamycin Hcl 300 Mg Capsule 1 Cap PO TID 7 Days Zantac (Ranitidine Hcl) 300 Mg Tablet 1 Tab PO QHS Valtrex (Valacyclovir Hcl) 1,000 Mg Tablet 1 Tab PO DAILY Prednisone 20 Mg Tablet 3 Tab PO DAILY PRN 5 Days Reported Percocet 10-325 Mg Tablet (Oxycodone/Acetaminophen) 1 Each Tablet 1 Tab PO Q4-6HRS PRN Oxycodone Hcl 20 Mg Tablet 20 Mg PO BID PRN Lamictal Xr (Lamotrigine) 300 Mg Tab.er.24 Abilify (Aripiprazole) 30 Mg Tablet Allergies Allergies: Coded Allergies: Sulfa (Sulfonamide Antibiotics) (Verified Allergy, Intermediate, 05/13/15) iodine (Verified Allergy, Intermediate, 05/13/15) sulfamethoxazole (Verified Allergy, Intermediate, 05/13/15) trimethoprim (Verified Allergy, Intermediate, 05/13/15) ROS Review of System CONSTITUTIONAL: No fever or chills EYES: No recent changes SKIN: No rash or itching CARDIOVASCULAR: No chest pain, syncope, palpitations, or edema RESPIRATORY: No SOB or cough GASTROINTESTINAL: No nausea, vomiting or abdominal pain NEUROLOGICAL: No headaches or weakness ENDOCRINE: No cold or heat intolerance GENITOURINARY: No urgency or frequency of urination MUSCULOSKELETAL: No back pain or joint pain LYMPHATICS: No enlarged lymph nodes PSYCHIATRIC: No anxiety or depression Physical Exam Physical Exam GENERAL: No apparent distress. Alert and oriented. HEENT: Head normocephalic, atraumatic. NECK: Supple LUNGS: Clear to auscultation. HEART: RRR, S1, S2 present, pulses intact ABDOMEN: Soft, positive bowel sounds. EXTREMITIES: No cyanosis or edema. NEUROLOGIC: Normal speech, normal tone PSYCHIATRIC: Normal affect, normal mood. SKIN: No ulceration. Vitals Vitals Vital Signs Date Time Temp Pulse Resp B/P (MAP) Pulse Ox O2 Delivery O2 Flow Rate FiO2 03/29/19 10:56 98.0 71 18 109/61 (77) 96 Room Air 98.0 Labs Labs Laboratory Tests Test 03/28/19 21:35 03/29/19 03:55 White Blood Count 4.4 x10^3/uL (4.0-11.0) 5.4 x10^3/uL (4.0-11.0) Red Blood Count 4.60 x10^6/uL (3.50-5.40) 4.67 x10^6/uL (3.50-5.40) Hemoglobin 13.3 g/dL (12.0-15.5) 13.4 g/dL (12.0-15.5) Hematocrit 40.1 % (36.0-47.0) 40.7 % (36.0-47.0) Mean Corpuscular Volume 87 fL (79-100) 87 fL (79-100) Mean Corpuscular Hemoglobin 29 pg (25-35) 29 pg (25-35) Mean Corpuscular Hemoglobin Concent 33 g/dL (31-37) 33 g/dL (31-37) Red Cell Distribution Width 14.0 % (11.5-14.5) 14.1 % (11.5-14.5) Platelet Count 273 x10^3/uL (140-400) 270 x10^3/uL (140-400) Neutrophils (%) (Auto) 64 % (31-73) 89 % (31-73) Lymphocytes (%) (Auto) 23 % (24-48) 8 % (24-48) Monocytes (%) (Auto) 10 % (0-9) 2 % (0-9) Eosinophils (%) (Auto) 3 % (0-3) 0 % (0-3) Basophils (%) (Auto) 1 % (0-3) 1 % (0-3) Neutrophils # (Auto) 2.8 x10^3/uL (1.8-7.7) 4.8 x10^3/uL (1.8-7.7) Lymphocytes # (Auto) 1.0 x10^3/uL (1.0-4.8) 0.4 x10^3/uL (1.0-4.8) Monocytes # (Auto) 0.4 x10^3/uL (0.0-1.1) 0.1 x10^3/uL (0.0-1.1) Eosinophils # (Auto) 0.1 x10^3/uL (0.0-0.7) 0.0 x10^3/uL (0.0-0.7) Basophils # (Auto) 0.1 x10^3/uL (0.0-0.2) 0.0 x10^3/uL (0.0-0.2) D-Dimer (Myrna) 0.68 ug/mlFEU (0.00-0.50) Sodium Level 143 mmol/L (136-145) 143 mmol/L (136-145) Potassium Level 3.3 mmol/L (3.5-5.1) 4.3 mmol/L (3.5-5.1) Chloride Level 107 mmol/L (98-107) 105 mmol/L (98-107) Carbon Dioxide Level 26 mmol/L (21-32) 25 mmol/L (21-32) Anion Gap 10 (6-14) 13 (6-14) Blood Urea Nitrogen 12 mg/dL (7-20) 12 mg/dL (7-20) Creatinine 0.8 mg/dL (0.6-1.0) 0.8 mg/dL (0.6-1.0) Estimated GFR (Cockcroft-Gault) 88.8 88.8 BUN/Creatinine Ratio 15 (6-20) 15 (6-20) Glucose Level 90 mg/dL (70-99) 158 mg/dL (70-99) Calcium Level 9.5 mg/dL (8.5-10.1) 9.5 mg/dL (8.5-10.1) Total Bilirubin 0.2 mg/dL (0.2-1.0) 0.3 mg/dL (0.2-1.0) Aspartate Amino Transf (AST/SGOT) 23 U/L (15-37) 23 U/L (15-37) Alanine Aminotransferase (ALT/SGPT) 35 U/L (14-59) 33 U/L (14-59) Alkaline Phosphatase 164 U/L (46-116) 208 U/L (46-116) Troponin I Quantitative < 0.017 ng/mL (0.000-0.055) VR-Zoy-T-Type Natriuretic Peptide 101 pg/mL (0-124) Total Protein 7.1 g/dL (6.4-8.2) 7.6 g/dL (6.4-8.2) Albumin 3.6 g/dL (3.4-5.0) 3.6 g/dL (3.4-5.0) Albumin/Globulin Ratio 1.0 (1.0-1.7) 0.9 (1.0-1.7) Segmented Neutrophils % 85 % (35-66) Band Neutrophils % 3 % (0-9) Lymphocytes % 10 % (24-48) Monocytes % 2 % (0-10) Platelet Estimate Adequate (ADEQUATE) Laboratory Tests Test 03/28/19 21:35 03/29/19 03:55 White Blood Count 4.4 x10^3/uL (4.0-11.0) 5.4 x10^3/uL (4.0-11.0) Red Blood Count 4.60 x10^6/uL (3.50-5.40) 4.67 x10^6/uL (3.50-5.40) Hemoglobin 13.3 g/dL (12.0-15.5) 13.4 g/dL (12.0-15.5) Hematocrit 40.1 % (36.0-47.0) 40.7 % (36.0-47.0) Mean Corpuscular Volume 87 fL (79-100) 87 fL (79-100) Mean Corpuscular Hemoglobin 29 pg (25-35) 29 pg (25-35) Mean Corpuscular Hemoglobin Concent 33 g/dL (31-37) 33 g/dL (31-37) Red Cell Distribution Width 14.0 % (11.5-14.5) 14.1 % (11.5-14.5) Platelet Count 273 x10^3/uL (140-400) 270 x10^3/uL (140-400) Neutrophils (%) (Auto) 64 % (31-73) 89 % (31-73) Lymphocytes (%) (Auto) 23 % (24-48) 8 % (24-48) Monocytes (%) (Auto) 10 % (0-9) 2 % (0-9) Eosinophils (%) (Auto) 3 % (0-3) 0 % (0-3) Basophils (%) (Auto) 1 % (0-3) 1 % (0-3) Neutrophils # (Auto) 2.8 x10^3/uL (1.8-7.7) 4.8 x10^3/uL (1.8-7.7) Lymphocytes # (Auto) 1.0 x10^3/uL (1.0-4.8) 0.4 x10^3/uL (1.0-4.8) Monocytes # (Auto) 0.4 x10^3/uL (0.0-1.1) 0.1 x10^3/uL (0.0-1.1) Eosinophils # (Auto) 0.1 x10^3/uL (0.0-0.7) 0.0 x10^3/uL (0.0-0.7) Basophils # (Auto) 0.1 x10^3/uL (0.0-0.2) 0.0 x10^3/uL (0.0-0.2) D-Dimer (Myrna) 0.68 ug/mlFEU (0.00-0.50) Sodium Level 143 mmol/L (136-145) 143 mmol/L (136-145) Potassium Level 3.3 mmol/L (3.5-5.1) 4.3 mmol/L (3.5-5.1) Chloride Level 107 mmol/L (98-107) 105 mmol/L (98-107) Carbon Dioxide Level 26 mmol/L (21-32) 25 mmol/L (21-32) Anion Gap 10 (6-14) 13 (6-14) Blood Urea Nitrogen 12 mg/dL (7-20) 12 mg/dL (7-20) Creatinine 0.8 mg/dL (0.6-1.0) 0.8 mg/dL (0.6-1.0) Estimated GFR (Cockcroft-Gault) 88.8 88.8 BUN/Creatinine Ratio 15 (6-20) 15 (6-20) Glucose Level 90 mg/dL (70-99) 158 mg/dL (70-99) Calcium Level 9.5 mg/dL (8.5-10.1) 9.5 mg/dL (8.5-10.1) Total Bilirubin 0.2 mg/dL (0.2-1.0) 0.3 mg/dL (0.2-1.0) Aspartate Amino Transf (AST/SGOT) 23 U/L (15-37) 23 U/L (15-37) Alanine Aminotransferase (ALT/SGPT) 35 U/L (14-59) 33 U/L (14-59) Alkaline Phosphatase 164 U/L (46-116) 208 U/L (46-116) Troponin I Quantitative < 0.017 ng/mL (0.000-0.055) WS-Gqc-N-Type Natriuretic Peptide 101 pg/mL (0-124) Total Protein 7.1 g/dL (6.4-8.2) 7.6 g/dL (6.4-8.2) Albumin 3.6 g/dL (3.4-5.0) 3.6 g/dL (3.4-5.0) Albumin/Globulin Ratio 1.0 (1.0-1.7) 0.9 (1.0-1.7) Segmented Neutrophils % 85 % (35-66) Band Neutrophils % 3 % (0-9) Lymphocytes % 10 % (24-48) Monocytes % 2 % (0-10) Platelet Estimate Adequate (ADEQUATE) VTE Prophylaxis Ordered VTE Prophylaxis Devices: No VTE Pharmacological Prophylaxi: Yes Assessment/Plan Assessment/Plan A Dyspnea on Exertion Elevated D dimer hx of Graves disease not on meds Hx of Bipolar disorder P: admit to medical floor bed check VQ scan check TTE start doxy and po prednisone heparin drip for now check TSH ISHMAEL EUCEDA MD Mar 29, 2019 12:00
--- NOTE | 2019-03-29 14:24 | RAD ---
Examination: LUNG VENT/PERFUSION SCAN(VQ) History: Elevated d-dimer, shortness of breath, chest pressure Comparison/Correlation: 03/28/2019 Portable Chest X-ray Exam Findings: 21.5 mCi xenon-133 gas was administered. Mild delay in washout of radiotracer noted. No ventilation defect. 5.5 mCi technetium 99m MAA was intravenously administered for perfusion imaging. Imaging was performed in 8 projections. Left upper lobe anterior segment mismatch defect is present. Impression: Intermediate probability for pulmonary embolism. Electronically signed by: Garcia Cope MD (03/29/2019 2:21 PM) [facility]
--- NOTE | 2019-03-29 16:03 | CARD ---
MR#: [id number] Date of Study: 03/29/2019 Ordering Physician: ISHMAEL EUCEDA, Referring Physician: ISHMAEL EUCEDA Tech: Wnedie Murcia [facility] APPROVED REPORT EXAM: Two-dimensional and M-mode echocardiogram with Doppler and color Doppler. Other Information Quality : Technically LimitedHR: 67bpm Rhythm : NSRTechnically limited study due to body habitus. INDICATION Chest Pain 2D DIMENSIONS RVDd2.9 (2.9-3.5cm)Left Atrium(2D)2.6 (1.6-4.0cm) IVSd1.0 (0.7-1.1cm)Aortic Root(2D)2.7 (2.0-3.7cm) LVDd3.7 (3.9-5.9cm)LVOT Diameter1.9 (1.8-2.4cm) PWd0.8 (0.7-1.1cm)LVDs2.9 (2.5-4.0cm) FS (%) 21.8 %SV26.4 ml LVEF(%)50.0 (>50%) M-Mode DIMENSIONS Left Atrium(MM)3.46 (2.5-4.0cm)Aortic Root3.02 (2.2-3.7cm) Aortic Valve AoV Peak Haider.156.0cm/sAoV VTI28.6cm AO Peak GR.9.7mmHgLVOT Peak Haider.126.0cm/s AO Mean GR.5mmHgAVA (VMAX)2.34cm2 RICCARDO (VTI)2.30cm2 Mitral Valve MV E Ercfarzc50.9cm/sMV DECEL [id number] MV A Uqvvxuoi01.9cm/sE/A Ratio0.8 Pulmonary Valve PV Peak Tvizwpbu43.4cm/s Tricuspid Valve TR P. Gtcmdeye496li/sRAP ASSAJEHN1nmFa TR Peak Gr.01rsDkUOLG90wtKr LEFT VENTRICLE The left ventricle is normal size. There is normal left ventricular wall thickness. Left ventricle sy stolic function is normal. The Ejection Fraction is 55-60%. There is normal LV segmental wall motion. Transmitral Doppler flow pattern is Grade I-abnormal relaxation pattern. RIGHT VENTRICLE The right ventricle is normal size. There is normal right ventricular wall thickness. The right ventr icular systolic function is normal. ATRIA The left atrium size is normal. The right atrium size is normal. The interatrial septum is intact wit h no evidence for an atrial septal defect or patent foramen ovale as noted on 2-D or Doppler imaging. AORTIC VALVE The aortic valve is normal in structure and function. The aortic valve is trileaflet. Doppler and Col or Flow revealed no significant aortic regurgitation. There is no significant aortic valvular stenosi s. MITRAL VALVE The mitral valve is normal in structure and function. There is no evidence of mitral valve prolapse. There is no mitral valve stenosis. Doppler and Color-flow revealed trace mitral regurgitation. TRICUSPID VALVE The tricuspid valve is normal in structure and function. Doppler and Color Flow revealed trace tricus pid regurgitation. The PA pressure was estimated at 20 mmHg. There is no tricuspid valve prolapse or vegetation. There is no tricuspid valve stenosis. PULMONIC VALVE The pulmonic valve is not well visualized. GREAT VESSELS The aortic root is normal in size. The ascending aorta is normal in size. The IVC is normal in size a nd collapses >50% with inspiration. PERICARDIAL EFFUSION There is no evidence of significant pericardial effusion. Critical Notification Critical Value: No <Conclusion> Left ventricle systolic function is normal. The Ejection Fraction is 55-60%. There is normal LV segmental wall motion. Transmitral Doppler flow pattern is Grade I-abnormal relaxation pattern. Trace mitral regurgitation. Trace tricuspid regurgitation. The PA pressure was estimated at 20 mmHg. There is no evidence of significant pericardial effusion. Signed by : Alex Aparicio, Electronically Approved : 03/29/2019 16:02:37
[2019-03-29] MEDS ORDERED: ENOXAPARIN 40 MG/0.4 ML SYRINGE. SQ SCH (18:00)
--- NOTE | 2019-03-29 20:19 | RAD ---
Bilateral lower extremity venous Doppler dated 03/29/2019. No comparison available. Clinical data indication: Possible PE seen on VQ scan. FINDINGS: Grayscale, color-flow and spectral waveform analysis performed to include the deep venous system of both lower extremity. Normal compressibility, phasicity and augmentation of flow throughout. No filling defects are seen. IMPRESSION: No evidence of lower extremity deep vein thrombosis. Electronically signed by: Pino Garcias MD (03/29/2019 8:16 PM) [facility]
[2019-03-30] MEDS: oxyCODONE/APAP 10/325 1 TAB TABLET PO PRN ×2 (00:03→04:31)
[2019-03-30 03:00] VITALS: BP 96/58
[2019-03-30 07:00] VITALS: BP 97/57
[2019-03-30] MEDS: guaiFENesin/CODEINE 100mg/10mg 5 ML LIQUID PO PRN ×2 (08:58→15:50)
[2019-03-30] MEDS: DOXYCYCLINE HYCLATE 100 MG TABLET PO SCH (08:58)
[2019-03-30 10:45] VITALS: BP 100/68
[2019-03-30] MEDS: IPRATRPIUM/ALBUTEROL 0.5/2.5MG 3 ML NEBU. NEB SCH ×2 (12:07→15:56)
[2019-03-30] MEDS ORDERED: DOXY100T PO (13:17)
[2019-03-30 15:17] VITALS: BP 102/62
--- NOTE | 2019-03-30 17:44 | PDOC3 ---
Discharge Summary Visit Information Date of Admission: Mar 28, 2019 Date of Discharge: Mar 30, 2019 Final Diagnosis Problems Medical Problems: (1) Chest pain Status: Acute (2) Elevated d-dimer Status: Acute (3) Hypokalemia Status: Acute (4) Shortness of breath Status: Acute Brief Hospital Course Allergies Allergies Coded Allergies Type Severity Reaction Last Updated Verified Sulfa (Sulfonamide Antibiotics) Allergy Intermediate 05/13/15 Yes iodine Allergy Intermediate 05/13/15 Yes sulfamethoxazole Allergy Intermediate 05/13/15 Yes trimethoprim Allergy Intermediate 05/13/15 Yes Vital Signs GENERAL: No apparent distress. Alert and oriented. HEENT: Head normocephalic, atraumatic. NECK: Supple LUNGS: Clear to auscultation. HEART: RRR, S1, S2 present, pulses intact ABDOMEN: Soft, positive bowel sounds. EXTREMITIES: No cyanosis or edema. NEUROLOGIC: Normal speech, normal tone PSYCHIATRIC: Normal affect, normal mood. SKIN: No ulceration. Vital Signs Date Time Temp Pulse Resp B/P (MAP) Pulse Ox O2 Delivery O2 Flow Rate FiO2 03/30/19 15:57 97 Room Air 03/30/19 15:17 98.4 87 102/62 (75) 98.4 03/30/19 07:00 16 Lab Results Laboratory Tests Test 03/28/19 21:35 03/29/19 03:55 White Blood Count 4.4 x10^3/uL (4.0-11.0) 5.4 x10^3/uL (4.0-11.0) Red Blood Count 4.60 x10^6/uL (3.50-5.40) 4.67 x10^6/uL (3.50-5.40) Hemoglobin 13.3 g/dL (12.0-15.5) 13.4 g/dL (12.0-15.5) Hematocrit 40.1 % (36.0-47.0) 40.7 % (36.0-47.0) Mean Corpuscular Volume 87 fL (79-100) 87 fL (79-100) Mean Corpuscular Hemoglobin 29 pg (25-35) 29 pg (25-35) Mean Corpuscular Hemoglobin Concent 33 g/dL (31-37) 33 g/dL (31-37) Red Cell Distribution Width 14.0 % (11.5-14.5) 14.1 % (11.5-14.5) Platelet Count 273 x10^3/uL (140-400) 270 x10^3/uL (140-400) Neutrophils (%) (Auto) 64 % (31-73) 89 % (31-73) Lymphocytes (%) (Auto) 23 % (24-48) 8 % (24-48) Monocytes (%) (Auto) 10 % (0-9) 2 % (0-9) Eosinophils (%) (Auto) 3 % (0-3) 0 % (0-3) Basophils (%) (Auto) 1 % (0-3) 1 % (0-3) Neutrophils # (Auto) 2.8 x10^3/uL (1.8-7.7) 4.8 x10^3/uL (1.8-7.7) Lymphocytes # (Auto) 1.0 x10^3/uL (1.0-4.8) 0.4 x10^3/uL (1.0-4.8) Monocytes # (Auto) 0.4 x10^3/uL (0.0-1.1) 0.1 x10^3/uL (0.0-1.1) Eosinophils # (Auto) 0.1 x10^3/uL (0.0-0.7) 0.0 x10^3/uL (0.0-0.7) Basophils # (Auto) 0.1 x10^3/uL (0.0-0.2) 0.0 x10^3/uL (0.0-0.2) D-Dimer (Myrna) 0.68 ug/mlFEU (0.00-0.50) Sodium Level 143 mmol/L (136-145) 143 mmol/L (136-145) Potassium Level 3.3 mmol/L (3.5-5.1) 4.3 mmol/L (3.5-5.1) Chloride Level 107 mmol/L (98-107) 105 mmol/L (98-107) Carbon Dioxide Level 26 mmol/L (21-32) 25 mmol/L (21-32) Anion Gap 10 (6-14) 13 (6-14) Blood Urea Nitrogen 12 mg/dL (7-20) 12 mg/dL (7-20) Creatinine 0.8 mg/dL (0.6-1.0) 0.8 mg/dL (0.6-1.0) Estimated GFR (Cockcroft-Gault) 88.8 88.8 BUN/Creatinine Ratio 15 (6-20) 15 (6-20) Glucose Level 90 mg/dL (70-99) 158 mg/dL (70-99) Calcium Level 9.5 mg/dL (8.5-10.1) 9.5 mg/dL (8.5-10.1) Total Bilirubin 0.2 mg/dL (0.2-1.0) 0.3 mg/dL (0.2-1.0) Aspartate Amino Transf (AST/SGOT) 23 U/L (15-37) 23 U/L (15-37) Alanine Aminotransferase (ALT/SGPT) 35 U/L (14-59) 33 U/L (14-59) Alkaline Phosphatase 164 U/L (46-116) 208 U/L (46-116) Troponin I Quantitative < 0.017 ng/mL (0.000-0.055) JA-Wqu-W-Type Natriuretic Peptide 101 pg/mL (0-124) Total Protein 7.1 g/dL (6.4-8.2) 7.6 g/dL (6.4-8.2) Albumin 3.6 g/dL (3.4-5.0) 3.6 g/dL (3.4-5.0) Albumin/Globulin Ratio 1.0 (1.0-1.7) 0.9 (1.0-1.7) Segmented Neutrophils % 85 % (35-66) Band Neutrophils % 3 % (0-9) Lymphocytes % 10 % (24-48) Monocytes % 2 % (0-10) Platelet Estimate Adequate (ADEQUATE) Thyroid Stimulating Hormone (TSH) 0.774 uIU/mL (0.358-3.74) Brief Hospital Course 59 year old feamile hx of SOB while at rest and on ambulation since yesterday at 12 pm. PFTS done yesterday per patient. hx of asthma and bronchitis but patient does not take any inhalers. reports non-productive cough. no hx of CHG of COPD. denies hx of PE. denies smoking. no hx of 02 use. noted elevated d dimer. hx of contrast allergy. VQ scan ordered and pending. noted hx of thyroid disease but not on meds Dyspnea on Exertion secondary to acute bronchitis. dc on doxy and steroid taper. Elevated D dimer, VQ scan mod prob. but not tachy, not hypoxic and LE dopplers neg for dvt hx of Graves disease not on meds Hx of Bipolar disorder patient dc home in stable condition. follow up with PCP regarding PFT results Discharge Information Condition at Discharge: Stable Disposition/Orders: D/C to Home Scheduled Doxycycline Hyclate (Doxycycline Hyclate) 100 Mg Tablet, 100 MG PO BID for copd for 5 Days, #10 Prescribed by: ISHMAEL EUCEDA MD on 03/30/19 1317 Ranitidine Hcl (Zantac) 300 Mg Tablet, 1 TAB PO QHS for reflux, #30 Ref 3 Prescribed by: PAULA MERAZ D.O. on 10/13/182133 Valacyclovir Hcl (Valtrex) 1,000 Mg Tablet, 1 TAB PO DAILY, #30 Ref 0 Prescribed by: PAULA MERAZ D.O. on 10/13/182133 Last Action: HELD on 03/29/19 115 by ISHMAEL EUCEDA MD Scheduled PRN Hydrocodone/Apap 5-325 (Cotter 5-325 Tablet) 1 Each Tablet, 1 TAB PO PRN Q6HRS PRN for PAIN, #14 Ref 0 Prescribed by: LUKAS LUNSFORD APRN on 11/08/18 1540 Last Action: Continued on 03/29/191152 by ISHMAEL EUCEDA MD Oxycodone Hcl (Oxycodone Hcl) 20 Mg Tablet, 20 MG PO BID PRN for PAIN, Ref 0 (Reported) Entered as Reported by: Iris Wilkinson on 03/19/16 1122 Oxycodone/Apap 10-325 (Percocet 10-325 Mg Tablet ) 1 Each Tablet, 1 TAB PO Q4- 6HRS PRN for PAIN, #40 (Reported) Entered as Reported by: Iris Wilkinson on 03/19/16 1123 Prednisone (Prednisone) 20 Mg Tablet, 3 TAB PO DAILY PRN for COUGH for 5 Days, #15 Prescribed by: PAULA MERAZ D.O. on 10/13/182133 Last Action: HELD on 03/29/191152 by ISHMAEL EUCEDA MD Miscellaneous Medications Aripiprazole (Abilify) 30 Mg Tablet, (Reported) Entered as Reported by: JEAN PAUL ANDERSON on 06/23/13 1712 Lamotrigine (Lamictal Xr) 300 Mg Tab.er.24, (Reported) Entered as Reported by: JEAN PAUL ANDERSON on 06/23/131711 Discontinued Medications Clindamycin Hcl (Clindamycin Hcl) 300 Mg Capsule, 1 CAP PO TID for 7 Days, #21 Prescribed by: MARGARITA SILVESTRE PA-C on 10/14/182306 Last Action: HELD on 03/29/191152 by MD KINSEY MUNOZ MANEESH MD Mar 30, 2019 17:44
== END 2019-03-30 16:37 | disposition home or self-care (01) | DRG 203 ==
LOC: ER 21:06 → 6 SOUTH 22:38
PROVIDERS: ADMIT Internal Medicine; ATTEND Internal Medicine
DX: J20.9 Acute bronchitis, unspecified (principal); E87.6 Hypokalemia; F31.9 Bipolar disorder, unspecified; K21.9 Gastro-esophageal reflux disease without esophagitis; Z90.710 Acquired absence of both cervix and uterus; Z96.659 Presence of unspecified artificial knee joint; G89.29 Other chronic pain; M19.90 Unspecified osteoarthritis, unspecified site; Z88.2 Allergy status to sulfonamides; Z88.8 Allergy status to other drugs, medicaments and biological substances; J45.909 Unspecified asthma, uncomplicated
CPT/HCPCS: 36415; 71045; 78582; 80053; 83880; 84443; 84484; 85007; 85025; 85379; 93005; 93306; 93970; 94640; 94660; 94760; 96374; A9540; A9558; J1650; J2930; J7512; J7613; J7620; 99285-25; G0378

== ENCOUNTER 2019-09-21 16:59 | Emergency (ER) | payer MEDICARE, OTHER ==
[~2019-09-21] VITALS: Ht 152.4 cm; Wt 77.2 kg
[~2019-09-21 16:59] MED LIST changes: +DOXY100T PO
[2019-09-21] MEDS ORDERED: ALBUTEROL SULFATE 2.5 MG/3 ML NEBU. CONT NEB ONE (17:15)
[2019-09-21] MEDS ORDERED: methylPREDNISolone SOD SUCC PF 125 MG/2 ML VIAL. IV ONE (17:15)
--- NOTE | 2019-09-21 17:22 | PHYS DOC ---
Past Medical History Past Medical History: Asthma, Bipolar, Pneumonia Additional Past Medical Histor: Graves dx, chronic pain knees and hips, Past Surgical History: Hysterectomy, Knee Replacement Additional Past Surgical Histo: CARPAL TUNNEL, bilateral eye surgery Smoking Status: Never Smoker Alcohol Use: None Drug Use: None Adult General Chief Complaint Chief Complaint: SHORTNESS OF BREATH HPI HPI Patient is a 59 year old female who presents with patient states she had a outpatient eye surgery yesterday. She stated last night she began having fa tigue, cough with clear mucus production. States she has not traveled and denies fever has not been rounding by also been sick that she knows of. She states that her chest feels tight but she does not have pain. Review of Systems Review of Systems Constitutional: Fatigue. Denies fever or chills [] Respiratory: cough or shortness of breath [] All other systems were reviewed and found to be within normal limits, except as documented in this note. Current Medications Current Medications Current Medications Medications (Trade) Dose Ordered Sig/Alley Start Time Stop Time Status Last Admin Dose Admin Albuterol Sulfate (Ventolin Neb Soln) 10 mg 1X ONCE 09/21/19 17:15 09/21/19 17:16 DC 09/21/19 18:16 10 MG Methylprednisolone Sodium Succinate (SOLU-Medrol 125MG VIAL) 125 mg 1X ONCE 09/21/19 17:15 09/21/19 17:16 DC 09/21/19 19:10 125 MG Allergies Allergies Allergies Coded Allergies Type Severity Reaction Last Updated Verified Sulfa (Sulfonamide Antibiotics) Allergy Intermediate 05/13/15 Yes iodine Allergy Intermediate 05/13/15 Yes sulfamethoxazole Allergy Intermediate 05/13/15 Yes trimethoprim Allergy Intermediate 05/13/15 Yes Physical Exam Physical Exam Constitutional: Well developed, well nourished, no acute distress, non-toxic appearance. [] HENT: Normocephalic, atraumatic, bilateral external ears normal, oropharynx moist, no oral exudates, nose normal. [] Eyes: PERRLA, EOMI, conjunctiva normal, no discharge. [] Neck: Normal range of motion, no tenderness, supple, no stridor. [] Cardiovascular:Heart rate regular rhythm, no murmur [] Lungs & Thorax: Bilateral upper breath sounds inspiratory wheezing and diminished in lower lobes to auscultation [] Abdomen: Bowel sounds normal, soft, no tenderness, no masses, no pulsatile masses. [] Skin: Warm, dry, no erythema, no rash. [] Back: No tenderness, no CVA tenderness. [] Extremities: No tenderness, no cyanosis, no clubbing, ROM intact, no edema. [] Neurologic: Alert and oriented X 3, normal motor function, normal sensory function, no focal deficits noted. [] Psychologic: Affect normal, judgement normal, mood normal. [] Current Patient Data Vital Signs Vital Signs Date Time Temp Pulse Resp B/P (MAP) Pulse Ox O2 Delivery O2 Flow Rate FiO2 09/21/19 20:30 94 143/85 (104) 97 Aerosol Mask 09/21/19 16:59 98.4 22 98.4 Lab Values Laboratory Tests Test 09/21/19 17:08 09/21/19 18:00 09/21/19 18:05 09/21/19 20:25 O2 Saturation 94 % (92-99) Arterial Blood pH 7.45 (7.35-7.45) Arterial Blood pCO2 at Patient Temp 37 mmHg (35-46) Arterial Blood pO2 at Patient Temp 70 mmHg (65-108) Arterial Blood HCO3 25 mmol/L (21-28) Arterial Blood Base Excess 1 mmol/L (-3-3) Oxyhemoglobin 93.5 % Methemoglobin 0.6 % (0.0-1.9) Carbon Monoxide, Quantitative 0.3 % (0.0-1.9) FiO2 21 White Blood Count 4.2 x10^3/uL (4.0-11.0) Red Blood Count 4.40 x10^6/uL (3.50-5.40) Hemoglobin 12.6 g/dL (12.0-15.5) Hematocrit 37.8 % (36.0-47.0) Mean Corpuscular Volume 86 fL (79-100) Mean Corpuscular Hemoglobin 29 pg (25-35) Mean Corpuscular Hemoglobin Concent 33 g/dL (31-37) Red Cell Distribution Width 14.0 % (11.5-14.5) Platelet Count 289 x10^3/uL (140-400) Neutrophils (%) (Auto) 61 % (31-73) Lymphocytes (%) (Auto) 23 % (24-48) L Monocytes (%) (Auto) 12 % (0-9) H Eosinophils (%) (Auto) 4 % (0-3) H Basophils (%) (Auto) 1 % (0-3) Neutrophils # (Auto) 2.6 x10^3/uL (1.8-7.7) Lymphocytes # (Auto) 1.0 x10^3/uL (1.0-4.8) Monocytes # (Auto) 0.5 x10^3/uL (0.0-1.1) Eosinophils # (Auto) 0.2 x10^3/uL (0.0-0.7) Basophils # (Auto) 0.0 x10^3/uL (0.0-0.2) Influenza Type A Antigen Negative (NEGATIVE) Influenza Type B Antigen Negative (NEGATIVE) Sodium Level 145 mmol/L (136-145) Potassium Level 3.3 mmol/L (3.5-5.1) L Chloride Level 108 mmol/L (98-107) H Carbon Dioxide Level 27 mmol/L (21-32) Anion Gap 10 (6-14) Blood Urea Nitrogen 11 mg/dL (7-20) Creatinine 0.7 mg/dL (0.6-1.0) Estimated GFR (Cockcroft-Gault) 103.6 BUN/Creatinine Ratio 16 (6-20) Glucose Level 86 mg/dL (70-99) Calcium Level 8.9 mg/dL (8.5-10.1) Total Bilirubin Pending Aspartate Amino Transferase (AST) Pending Alanine Aminotransferase (ALT) Pending Alkaline Phosphatase Pending Total Protein Pending Albumin Pending Albumin/Globulin Ratio Pending Laboratory Tests 09/21/19 18:00 Laboratory Tests 09/21/19 20:25 EKG EKG Sinus Rhythm and no STEMI[] Interpretation Time: [address] Schmitt Radiology/Procedures Radiology/Procedures [] Impressions: [facility] [address] [place] [address] IMAGING REPORT Signed PATIENT: ASIF HAWKINS ACCOUNT: [id number] : 1960 LOCATION: ER AGE: 59 SEX: F EXAM STATUS: REG ER ORD. PHYSICIAN: PRERNA MONDRAGON APRN REASON: soa, cough PROCEDURE: PORTABLE CHEST 1V INDICATION: Shortness of air and cough COMPARISON: March 28, 2019 FINDINGS: Single view of chest obtained. No definite new region of focal airspace consolidation or pulmonary edema. Cardiac silhouette is mildly prominent IMPRESSION: * No definite focal airspace consolidation Electronically signed by: Gema Palafox MD (09/21/2019 5:50 PM) [id number] DICTATED and SIGNED BY: GEMA PALAFOX MD DATE: 09/21/19 175 Course & Med Decision Making Course & Med Decision Making Pertinent Labs and Imaging studies reviewed. (See chart for details) Speaks in full clear sentences. Alert and oriented. Ambulatory with a steady gait. Patient has auditory inspiratory wheezes. She does have inspiratory wheezes in her upper lobes and diminished in lower lobes. No extremity edema. Skin pink warm and dry. Denies any current antibiotics or steroids. Patient is given solumedrol and albuterol in the ED. With reexamination the patient states she is feeling much better and her lung sounds have cleared. Vital signs remain stable. Patient states she is ready to go home. I have educated that the patient should self isolate for the next 2 weeks at least and if she begins having respiratory distress to call 911. [] Dragon Disclaimer Dragon Disclaimer This electronic medical record was generated, in whole or in part, using a voice recognition dictation system. Departure Departure Impression: Primary Impression: Shortness of breath Disposition: 01 HOME, SELF-CARE Condition: STABLE Referrals: CECE CHAPMAN MD (PCP) Patient Instructions: Asthma, Adult Additional Instructions: Self isolate for the next 2 weeks and if you begin to have respiratory distress call 911. Use medications as prescribed. Drink plenty of fluids. Scripts Benzonatate (TESSALON PERLE) 100 Mg Capsule 1 CAP PO TID, #30 CAP Prov: PRERNA MONDRAGON APRN 09/21/19 Albuterol Sulfate (PROAIR HFA INHALER) 8.5 Gm Hfa.aer.ad 1 PUFF INH PRN Q6HRS PRN for SHORTNESS OF BREATH, #1 INHALER 0 Refills Prov: PRERNA MONDRAGON APRN 09/21/19 Methylprednisolone (MEDROL) 4 Mg Tab.ds.pk 1 PKG PO UD, #1 PKG Prov: PRERNA MONDRAGON APRN 09/21/19 PRERNA MONDRAGON APRN Sep 21, 2019 17:22
--- NOTE | 2019-09-21 17:53 | RAD ---
INDICATION: Shortness of air and cough COMPARISON: March 28, 2019 FINDINGS: Single view of chest obtained. No definite new region of focal airspace consolidation or pulmonary edema. Cardiac silhouette is mildly prominent IMPRESSION: * No definite focal airspace consolidation Electronically signed by: Milton Umana MD (09/21/2019 5:50 PM) [id number]
[2019-09-21 18:14] LABS: BASO % 1 % (0-3); EOS # 0.2 x10^3/uL (0.0-0.7); EOS % 4 % (0-3); HEMATOCRIT 37.8 % (36.0-47.0); HEMOGLOBIN 12.6 g/dL (12.0-15.5); LYMPH % 23 % (24-48); MEAN CORPUSCULAR HEMOGLOBIN 29 pg (25-35); MEAN CORPUSCULAR HGB CONC 33 g/dL (31-37); MEAN CORPUSCULAR VOLUME 86 fL (79-100); MONO # 0.5 x10^3/uL (0.0-1.1); MONO % 12 % (0-9); NEUT # 2.6 x10^3/uL (1.8-7.7); NEUT % 61 % (31-73); PLATELET COUNT 289 x10^3/uL (140-400); WHITE BLOOD COUNT 4.2 x10^3/uL (4.0-11.0)
[2019-09-21 18:25] LABS: BASE EXCESS COOX 1 mmol/L (-3-3); HCO3 COOX 25 mmol/L (21-28); METHEMOGLOBIN 0.6 % (0.0-1.9); OXYHEMOGLOBIN 93.5 %; PCO2 COOX 37 mmHg (35-46); PO2 COOX 70 mmHg (65-108); SAT O2 COOX 94 % (92-99)
[2019-09-21 18:34] LABS: INFLUENZA A PATIENT NEGATIVE (NEGATIVE); INFLUENZA B PATIENT NEGATIVE (NEGATIVE)
[2019-09-21] MEDS ORDERED: METH4TAB2 PO (20:37)
[2019-09-21] MEDS ORDERED: ALBU2.5V8 INH (20:37)
[2019-09-21 20:50] LABS: CALCIUM 8.9 mg/dL (8.5-10.1); CREATININE 0.7 mg/dL (0.6-1.0); GFR 103.6; POTASSIUM 3.3 mmol/L (3.5-5.1)
[2019-09-21 20:56] LABS: ALBUMIN 3.5 g/dL (3.4-5.0); ALBUMIN/GLOBULIN RATIO 1.1 (1.0-1.7); TOTAL PROTEIN 6.8 g/dL (6.4-8.2)
[2019-09-21] MEDS ORDERED: BENZ100C PO (20:57)
[2019-09-21 21:19] LABS: TOTAL BILIRUBIN 0.3 mg/dL (0.2-1.0)
[2019-09-21 21:36] VITALS: BP 137/74
--- NOTE | 2019-09-22 05:14 | EKG ---
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
== END 2019-09-21 21:55 | disposition home or self-care (01) ==
LOC: ER 16:59
DX: R06.02 Shortness of breath (principal); R05 Cough; R53.83 Other fatigue; R07.89 Other chest pain; J45.909 Unspecified asthma, uncomplicated; F31.9 Bipolar disorder, unspecified; G89.29 Other chronic pain; Z88.1 Allergy status to other antibiotic agents; Z88.2 Allergy status to sulfonamides; Z88.8 Allergy status to other drugs, medicaments and biological substances
CPT/HCPCS: 36415; 36600; 71045; 80053; 82805; 83880; 84484; 85025; 87804; 93005; 94644; 96374; 99285; J2930; 94640; J7613

== ENCOUNTER 2019-10-03 23:22 | Emergency (ER) | payer MEDICARE, OTHER ==
[~2019-10-03] VITALS: Ht 152.4 cm; Wt 75.0 kg
[~2019-10-03 23:22] MED LIST changes: +ALBU2.5V8 INH; +BENZ100C PO; +METH4TAB2 PO
--- NOTE | 2019-10-03 23:44 | PHYS DOC ---
Past Medical History Past Medical History: Asthma, Bipolar, Bronchitis, Pneumonia Additional Past Medical Histor: Graves dx, chronic pain knees and hips, Past Surgical History: Hysterectomy, Knee Replacement Additional Past Surgical Histo: CARPAL TUNNEL, bilateral eye surgery Smoking Status: Never Smoker Alcohol Use: None Drug Use: None Adult General HPI HPI 59-year-old female with underlying history of asthma, bipolar, pneumonia presents to the emergency department complaints of chest pain, cough as well as fever. Patient states the symptoms been ongoing x1 week, she has received nebulizer, cough medicine, antibiotic without relief. Nothing makes her symptoms worse, nothing makes her symptoms better. Patient denies any headache or visual changes at this time. Patient states she has been tested by her physician for COVID - results pending Review of Systems Review of Systems Constitutional: + fever Respiratory: cough/SOB Cardiovascular: No additional information not addressed in HPI [] GI: Denies abdominal pain, nausea, vomiting, bloody stools or diarrhea [] Musculoskeletal: Denies back pain or joint pain [] Integument: Denies rash or skin lesions [] Neurologic: Denies headache, focal weakness or sensory changes [] All other systems were reviewed and found to be within normal limits, except as documented in this note. Current Medications Current Medications Current Medications Medications (Trade) Dose Ordered Sig/Alley Start Time Stop Time Status Last Admin Dose Admin Aspirin (Children'S Aspirin) 324 mg 1X ONCE 10/03/19 23:45 10/03/19 23:46 DC 10/04/19 00:20 324 MG Sodium Chloride 1,000 ml @ 1,000 mls/hr Q1H 10/03/19 23:45 10/04/19 00:44 DC 10/04/19 00:20 1,000 MLS/HR Allergies Allergies Allergies Coded Allergies Type Severity Reaction Last Updated Verified Sulfa (Sulfonamide Antibiotics) Allergy Intermediate 05/13/15 Yes iodine Allergy Intermediate 05/13/15 Yes sulfamethoxazole Allergy Intermediate 05/13/15 Yes trimethoprim Allergy Intermediate 05/13/15 Yes Physical Exam Physical Exam Constitutional: Well developed, well nourished, no acute distress, non-toxic appearance. [] Cardiovascular:Heart rate regular rhythm, no murmur [] Lungs & Thorax: decreased BS bilaterally Abdomen: Bowel sounds normal, soft, no tenderness, no masses, no pulsatile masses. [] Skin: Warm, dry, no erythema, no rash. [] Back: No tenderness, no CVA tenderness. [] Extremities: No tenderness, no edema. [] Neurologic: Alert and oriented X 3, no focal deficits noted. [] Psychologic: Affect normal, judgement normal, mood normal. [] Current Patient Data Vital Signs Vital Signs Date Time Temp Pulse Resp B/P (MAP) Pulse Ox O2 Delivery O2 Flow Rate FiO2 10/04/19 02:15 72 108/67 (81) 10/04/19 00:22 99 10/03/19 23:29 98.4 24 Room Air 98.4 Lab Values Laboratory Tests Test 10/03/19 23:40 10/04/19 01:00 10/04/19 01:20 10/04/19 02:10 White Blood Count 5.6 x10^3/uL (4.0-11.0) Red Blood Count 4.44 x10^6/uL (3.50-5.40) Hemoglobin 12.6 g/dL (12.0-15.5) Hematocrit 38.4 % (36.0-47.0) Mean Corpuscular Volume 87 fL (79-100) Mean Corpuscular Hemoglobin 28 pg (25-35) Mean Corpuscular Hemoglobin Concent 33 g/dL (31-37) Red Cell Distribution Width 14.4 % (11.5-14.5) Platelet Count 260 x10^3/uL (140-400) Neutrophils (%) (Auto) 64 % (31-73) Lymphocytes (%) (Auto) 18 % (24-48) L Monocytes (%) (Auto) 12 % (0-9) H Eosinophils (%) (Auto) 5 % (0-3) H Basophils (%) (Auto) 1 % (0-3) Neutrophils # (Auto) 3.6 x10^3/uL (1.8-7.7) Lymphocytes # (Auto) 1.0 x10^3/uL (1.0-4.8) Monocytes # (Auto) 0.7 x10^3/uL (0.0-1.1) Eosinophils # (Auto) 0.3 x10^3/uL (0.0-0.7) Basophils # (Auto) 0.1 x10^3/uL (0.0-0.2) Urine Collection Type Unknown Urine Color Yellow Urine Clarity Clear Urine pH 6.0 (<5.0-8.0) Urine Specific [place] 1.025 (1.000-1.030) Urine Protein Negative mg/dL (NEG-TRACE) Urine Glucose (UA) Negative mg/dL (NEG) Urine Ketones (Stick) Negative mg/dL (NEG) Urine Blood Negative (NEG) Urine Nitrite Negative (NEG) Urine Bilirubin Negative (NEG) Urine Urobilinogen Dipstick 0.2 mg/dL (0.2 mg/dL) Urine Leukocyte Esterase Small (NEG) Urine RBC Occ /HPF (0-2) Urine WBC 5-10 /HPF (0-4) Urine Squamous Epithelial Cells Mod /LPF Urine Bacteria 0 /HPF (0-FEW) Urine Mucus Marked /LPF Sodium Level 140 mmol/L (136-145) Potassium Level 3.7 mmol/L (3.5-5.1) Chloride Level 104 mmol/L (98-107) Carbon Dioxide Level 27 mmol/L (21-32) Anion Gap 9 (6-14) Blood Urea Nitrogen 12 mg/dL (7-20) Creatinine 0.7 mg/dL (0.6-1.0) Estimated GFR (Cockcroft-Gault) 103.6 BUN/Creatinine Ratio 17 (6-20) Glucose Level 86 mg/dL (70-99) Calcium Level 9.1 mg/dL (8.5-10.1) Magnesium Level 2.1 mg/dL (1.8-2.4) Total Bilirubin 0.3 mg/dL (0.2-1.0) Aspartate Amino Transferase (AST) 22 U/L (15-37) Alanine Aminotransferase (ALT) 25 U/L (14-59) Alkaline Phosphatase 175 U/L (46-116) H Troponin I Quantitative < 0.017 ng/mL (0.000-0.055) < 0.017 ng/mL (0.000-0.055) PP-Zlu-I-Type Natriuretic Peptide 22 pg/mL (0-124) Total Protein 7.0 g/dL (6.4-8.2) Albumin 3.7 g/dL (3.4-5.0) Albumin/Globulin Ratio 1.1 (1.0-1.7) Laboratory Tests 10/03/19 23:40 Laboratory Tests 10/04/19 01:20 EKG EKG EKG reviewed, interpretation time 2340, left axis deviation, sinus rhythm, no STEMI, heart rate 80 [] Radiology/Procedures Radiology/Procedures [facility] [address] [place] [address] IMAGING REPORT Signed PATIENT: ASIF HAWKINS ACCOUNT: [id number] : 1960 LOCATION: ER AGE: 59 SEX: F EXAM STATUS: REG ER ORD. PHYSICIAN: ARIAS GARZA MD REASON: Chest Pain, fever, cough PROCEDURE: PORTABLE CHEST 1V INDICATION: Chest pain and fever COMPARISON: September 21, 2019 FINDINGS: Single view of chest obtained. Hypoexpanded examination the lungs with mild interstitial prominence. Cardiac silhouette is mildly prominent in size. Degenerative changes the spine. Resorption distal clavicle on the left. IMPRESSION: * Hypoexpanded exam with mild interstitial prominence. Could be secondary to vascular crowding from hypoexpansion although mild pulmonary vascular congestion or small airway inflammation can have this appearance as well. Electronically signed by: Gema Palafox MD (10/04/2019 12:07 AM) [id number] DICTATED and SIGNED BY: GEMA PALAFOX MD DATE: 10/04/196 [] Course & Med Decision Making Course & Med Decision Making Pertinent Labs and Imaging studies reviewed. (See chart for details) [] 59-year-old female with underlying history of asthma, bipolar, pneumonia presents to the emergency department complaints of chest pain, cough as well as fever. Patient states the symptoms been ongoing x1 week, she has received nebulizer, cough medicine, antibiotic without relief. Nothing makes her symptoms worse, nothing makes her symptoms better. Patient denies any headache or visual changes at this time. Patient states she has been tested by her physician for COVID - results pending Labs/Imaging reviewed CXR no acute consolidation BNP and troponin normal Patient's 3rd ER visit this week Would recommend continuing home medications that were prescribed by PCP. Discussed findings with patient Dragloretta Disclaimer Dragon Disclaimer This electronic medical record was generated, in whole or in part, using a voice recognition dictation system. Departure Departure Impression: Primary Impression: Costochondral chest pain Additional Impression: URI (upper respiratory infection) Disposition: HOME, SELF-CARE Condition: IMPROVED Referrals: CECE CHAPMAN MD (PCP) Patient Instructions: Costochondritis, Volc-ya-Dmgy, Upper Respiratory Infecti on, Adult, [id number] Additional Instructions: Continue medications as prescribed by your PCP Xray without evidence of consolidation/edema on exam Cardiac enzymes x 2 negative UA without evidence of infection Keep yourself quarantined until COVID testing resulted Tylenol as needed for fever No acute findings for admit at this time Problem Qualifiers Additional Impression: URI (upper respiratory infection) URI type: unspecified URI Qualified Codes: J06.9 - Acute upper respiratory infection, unspecified ARIAS GARZA MD Oct 03, 2019 23:44
[2019-10-03] MEDS ORDERED: IV NORMAL SALINE 1000ML BAG 1,000 ML IV SCH (23:45)
[2019-10-03] MEDS ORDERED: ASPIRIN CHEWABLE 81 MG TABLET. PO ONE (23:45)
[2019-10-03 23:50] LABS: BASO # 0.1 x10^3/uL (0.0-0.2); BASO % 1 % (0-3); EOS # 0.3 x10^3/uL (0.0-0.7); EOS % 5 % (0-3); HEMATOCRIT 38.4 % (36.0-47.0); HEMOGLOBIN 12.6 g/dL (12.0-15.5); LYMPH % 18 % (24-48); MEAN CORPUSCULAR HEMOGLOBIN 28 pg (25-35); MEAN CORPUSCULAR HGB CONC 33 g/dL (31-37); MEAN CORPUSCULAR VOLUME 87 fL (79-100); MONO # 0.7 x10^3/uL (0.0-1.1); MONO % 12 % (0-9); NEUT # 3.6 x10^3/uL (1.8-7.7); NEUT % 64 % (31-73); PLATELET COUNT 260 x10^3/uL (140-400); RED BLOOD COUNT 4.44 x10^6/uL (3.50-5.40); RED CELL DISTRIBUTION WIDTH 14.4 % (11.5-14.5); WHITE BLOOD COUNT 5.6 x10^3/uL (4.0-11.0)
--- NOTE | 2019-10-04 00:10 | RAD ---
INDICATION: Chest pain and fever COMPARISON: September 21, 2019 FINDINGS: Single view of chest obtained. Hypoexpanded examination the lungs with mild interstitial prominence. Cardiac silhouette is mildly prominent in size. Degenerative changes the spine. Resorption distal clavicle on the left. IMPRESSION: * Hypoexpanded exam with mild interstitial prominence. Could be secondary to vascular crowding from hypoexpansion although mild pulmonary vascular congestion or small airway inflammation can have this appearance as well. Electronically signed by: Milton Umana MD (10/04/2019 12:07 AM) [id number]
[2019-10-04 01:28] LABS: BILIRUBIN,URINE NEGATIVE (NEG); CLARITY,URINE CLEAR; COLOR,URINE YELLOW; NITRITE,URINE NEGATIVE (NEG); PROTEIN,URINE NEGATIVE (NEG-TRACE); UROBILINOGEN,URINE 0.2 mg/dL (0.2 mg/dL)
[2019-10-04 01:37] LABS: BACTERIA,URINE 0 /HPF (0-FEW); RBC,URINE OCC /HPF (0-2); SQUAMOUS EPITHELIAL CELL,UR MOD /LPF
[2019-10-04 01:37] LABS: CALCIUM 9.1 mg/dL (8.5-10.1); CREATININE 0.7 mg/dL (0.6-1.0); GFR 103.6; POTASSIUM 3.7 mmol/L (3.5-5.1)
[2019-10-04 01:42] LABS: ALBUMIN 3.7 g/dL (3.4-5.0); ALBUMIN/GLOBULIN RATIO 1.1 (1.0-1.7); MAGNESIUM 2.1 mg/dL (1.8-2.4); TOTAL BILIRUBIN 0.3 mg/dL (0.2-1.0)
[2019-10-04 03:15] VITALS: BP 119/64
--- NOTE | 2019-10-04 07:56 | EKG ---
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
== END 2019-10-04 03:25 | disposition home or self-care (01) ==
LOC: ER 23:22
DX: R07.1 Chest pain on breathing (principal); J06.9 Acute upper respiratory infection, unspecified; F31.9 Bipolar disorder, unspecified; J45.909 Unspecified asthma, uncomplicated; G89.29 Other chronic pain; Z88.1 Allergy status to other antibiotic agents; Z88.2 Allergy status to sulfonamides; Z88.8 Allergy status to other drugs, medicaments and biological substances
CPT/HCPCS: 36415; 71045; 80053; 81001; 83735; 83880; 84484; 85025; 87086; 93005; 99285; J7030

== ENCOUNTER → 2021-02-12 | Outpatient (CLI) | payer MEDICARE, OTHER ==
[~2021-02-12] MED LIST changes: -CLIN300C8 PO; +CLIN300C9 PO
--- NOTE | 2021-02-12 14:42 | EKG ---
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
[2021-02-12 14:48] LABS: CALCIUM 9.5 mg/dL (8.5-10.1); CREATININE 0.7 mg/dL (0.6-1.0); GFR 102.9; POTASSIUM 3.9 mmol/L (3.5-5.1)
[2021-02-12 14:58] LABS: BASO % 1 % (0-3); EOS # 0.2 x10^3/uL (0.0-0.7); EOS % 5 % (0-3); HEMATOCRIT 35.8 % (36.0-47.0); HEMOGLOBIN 11.9 g/dL (12.0-15.5); LYMPH # 0.8 x10^3/uL (1.0-4.8); LYMPH % 20 % (24-48); MEAN CORPUSCULAR HEMOGLOBIN 29 pg (25-35); MEAN CORPUSCULAR HGB CONC 33 g/dL (31-37); MEAN CORPUSCULAR VOLUME 87 fL (79-100); MONO # 0.5 x10^3/uL (0.0-1.1); MONO % 13 % (0-9); NEUT # 2.5 x10^3/uL (1.8-7.7); NEUT % 61 % (31-73); PLATELET COUNT 287 x10^3/uL (140-400); RED BLOOD COUNT 4.12 x10^6/uL (3.50-5.40); RED CELL DISTRIBUTION WIDTH 14.2 % (11.5-14.5); WHITE BLOOD COUNT 4.1 x10^3/uL (4.0-11.0)
[2021-02-12 15:10] LABS: PROTHROMBIN TIME PATIENT 12.5 SEC (11.7-14.0)
--- NOTE | 2021-02-12 16:09 | RAD ---
EXAM: CHEST 2 VIEWS. HISTORY: Preoperative risk factors. COMPARISON: 10/03/2019. FINDINGS: Frontal and lateral views of the chest are obtained. There is mild atelectasis in the left base. There is no pneumothorax or pleural effusion. The heart i s not enlarged. Calcified lymph nodes likely reflect old granulomatous disease. A 1.3 cm calcific den sity projecting within the right breast may represent a calcified fibroadenoma. IMPRESSION: 1. No confluent infiltrates. Electronically signed by: Navdeep Lucas MD (02/12/2021 4:07 PM) [id number]
[2021-02-13 03:09] LABS: HEMOGLOBIN A1C 5.2 % (4.8-5.6)
== END ==
LOC: SURGPAT 13:34
PROVIDERS: ATTEND Orthopaedic Surgery
DX: Z01.818 Encounter for other preprocedural examination (principal); R94.31 Abnormal electrocardiogram [ECG] [EKG]; I44.4 Left anterior fascicular block; J98.11 Atelectasis; M16.11 Unilateral primary osteoarthritis, right hip
CPT/HCPCS: 36415; 71046; 80048; 82040; 82306; 83036; 85025; 85610; 85651; 85730; 87641; 93005

== ENCOUNTER → 2021-11-28 | Outpatient (CLI) | payer MEDICARE, OTHER ==
[2021-02-28 15:10] VITALS: BP 105/39
[~2021-11-28] MED LIST changes: +CLIN-94 PO; -CLIN300C9 PO; +MELO15TA6 PO; +WARF-31 PO; +WARFARIN
--- NOTE | 2021-11-28 16:01 | RAD ---
EXAMINATION: US DPLX VENOUS EXTREMITY LOWER LT (LOWER EXTREMITY VENOUS ULTRASOUND) CLINICAL HISTORY: Left lower extremity edema. TECHNIQUE: Sonographic grayscale images obtained of the left lower extremity deep venous system with color flow Doppler, compression, and augmentation techniques as indicated. Images obtained and store d in a permanent archive. COMPARISON: None FINDINGS: No evidence of absent flow or incompressibility within the common femoral vein, femoral vein, or popl iteal vein. Visualized calf veins appear patent on limited evaluation. IMPRESSION: No evidence of left lower extremity DVT. Electronically signed by: Kyree Lugo DO (11/28/2021 3:58 PM) [facility]
== END ==
LOC: US 15:21
PROVIDERS: ATTEND Podiatrist
DX: M79.89 Other specified soft tissue disorders (principal)
CPT/HCPCS: 93971